=== PATIENT | female | born 1970 | race American Indian/Alaskan Native ===

== ENCOUNTER 2019-10-18 20:34 | Observation (INO) | payer MEDICARE ==
--- NOTE | 2019-10-18 21:52 | Event Note ---
ED Screening Note Date of service: 10/18/19 Time: 21:49 ED Screening Note: Patient is a 49 yo AA female with a h/o COPD, CHF, NIDDM, ESRD on hemodialysis presents to the ED with c/o acute onset syncope about 1 hour ago. Patient diagnosed earlier with [place] at [facility] and was on her way to the pharmacy when she had a syncope. Patient evaluated on scene by EMS and brought to the ED. In triage, patient is alert and oriented x 3, somnolent but arousable. This initial assessment/diagnostic orders/clinical plan/treatment(s) is/are subject to change based on patients health status, clinical progression and re- assessment by fellow clinical providers in the ED. Further treatment and workup at subsequent clinical providers discretion. Patient/guardian urged not to elope from the ED as their condition may be serious if not clinically assessed and managed. Initial orders include: CBC, EKG, CMP, BNP, Chest x-ray, Head CT scan, troponin, PT, PTT
[2019-10-18 22:15] LABS: INR 1.07 (0.87-1.13)
[2019-10-18 22:16] LABS: Hematocrit 32.2 % (30.3-42.9); Hemoglobin 10.3 gm/dl (10.1-14.3); Mean Corpuscular HGB Conc 32 % (30-34); Mean Corpuscular Volume 92 fl (79-97); Partial Thromboplastin Time 32.9 Sec. (24.2-36.6); Platelet Count 216 K/mm3 (140-440); Red Blood Count 3.52 M/mm3 (3.65-5.03); Red Cell Distribution Width 17.3 % (13.2-15.2)
--- NOTE | 2019-10-18 22:29 | XRay Report ---
CHEST 1 VIEW 10:14 PM INDICATION / CLINICAL INFORMATION: Syncope and dyspnea. COMPARISON: None available. FINDINGS: SUPPORT DEVICES: The patient's brassiere was left in place. There is a right jugular Vas-Cath with th e tip overlying the mid right atrium. HEART / MEDIASTINUM: The heart is mildly enlarged. Pulmonary vasculature is normal. LUNGS / PLEURA: There is minimal right basilar subsegmental parenchymal disease. No pneumothorax. ADDITIONAL FINDINGS: No significant additional findings. IMPRESSION: Minimal right basilar subsegmental atelectasis. Signer Name: Reji Balbuena MD Signed: 10/18/2019 10:25 PM Workstation Name: [id number]
[2019-10-18 22:30] LABS: Albumin 3.7 g/dL (3.9-5)
[2019-10-18 22:47] LABS: Anisocytosis 1+; Basophils % (Manual) 0 % (0.0-1.8); Eosinophils % (Manual) 0 % (0.0-4.3); Hypochromasia 1+; Schistocytes 1+; Target Cells 1+; Total Cells Counted 100
--- NOTE | 2019-10-18 22:56 | Cat Scan Report ---
CT head without contrast INDICATION : dyspnea, syncope. TECHNIQUE: Axial imaging performed from the skull apex through the skull base without the use of con trast. All CT scans at this location are performed using CT dose reduction for ALARA by means of aut omated exposure control. COMPARISON: None FINDINGS: Parenchyma: No acute intracranial hemorrhage or parenchymal abnormality. Small lacunar infarct in th e left basal ganglia. Ventricles: Ventricles are normal in size and appear symmetric. Soft tissues: Soft tissues including the orbits appear normal. Bones: No acute osseous abnormality. Sinuses: Sinuses and mastoid air cells are clear. IMPRESSION: No acute abnormality. Signer Name: Deshawn Hilario MD Signed: 10/18/2019 10:52 PM Workstation Name: [id number]
[2019-10-19] MEDS ORDERED: IPRATROPIUM/ALBUTEROL SULFATE 3 ML AMPUL.NEB IH ONE (01:12)
--- NOTE | 2019-10-19 01:53 | Emergency Department Report ---
ED General Adult HPI - General Chief complaint: Syncope Stated complaint: FLU Time Seen by Provider: 10/19/19 00:33 Source: patient, EMS Mode of arrival: Ambulatory Limitations: Physical Limitation, Other - History of Present Illness Initial comments: Patient presents to the emergency department with a chief complaint of a syncopal episode. Patient states she was diagnosed with influenza [facility] and was given prescriptions and discharged home. Patient states on the way home in the passenger seat of the vehicle she passed out. Patient denies any chest pain prior to or after the syncopal event. Patient has a history of end-stage renal disease with dialysis, hypertension, diabetes mellitus, COPD. -: Sudden Severity scale (0 -10): 0 Consistency: now resolved Improves with: none Worsens with: none Associated Symptoms: denies other symptoms Treatments Prior to Arrival: none - Related Data Home Medications Medication Instructions Recorded Confirmed Last Taken Albuterol INH(or & Nicu Only) 2 puff IH Q4H PRN 07/07/13 10/19/19 12/30/15 [ProAir HFA Inhaler] Insulin Aspart (Nf) [NovoLOG 100 30 unit SQ TIDAC 07/07/13 10/19/19 12/30/15 UNITS/ML VIAL] Loratadine (Nf) [Claritin (Nf)] 10 mg PO DAILY 07/07/13 10/19/19 12/30/15 Furosemide [Lasix TAB] 80 mg PO TID 11/14/14 10/19/19 12/30/15 Insulin Glargine,Hum.rec.anlog 3 unit SQ QHS 11/14/14 10/19/19 12/30/15 [Lantus] hydrALAZINE [Apresoline TAB] 50 mg PO TID 11/14/14 10/19/19 12/31/15 Albuterol Sulfate [Ventolin HFA] 2 puff IH PRN PRN 12/30/15 10/19/19 12/30/15 Cinacalcet [Sensipar] 30 mg PO QDAY 12/30/15 10/19/19 12/30/15 Cyclopentolate 1% [Cyclogyl] 1 drop OU QDAY 12/30/15 10/19/19 12/30/15 Gabapentin 300 mg PO BID 12/30/15 10/19/19 12/30/15 Montelukast Sodium 4 mg PO QDAY 12/30/15 10/19/19 12/30/15 Montelukast Sodium 4 mg PO QID 12/30/15 10/19/19 12/30/15 Trazodone HCl [traZODone] 50 mg PO HS 12/30/15 10/19/19 12/30/15 carvediloL [Carvedilol] 3.125 mg PO QDAY 12/30/15 10/19/19 12/31/15 Allergies Allergy/AdvReac Type Severity Reaction Status Date / Time acetaminophen [From Percocet] AdvReac Dizziness/short Verified 11/14/14 07:15 of breath oxycodone HCl [From Percocet] AdvReac Dizziness/short Verified 11/14/14 07:15 of breath ED Review of Systems ROS: Stated complaint: FLU Other details as noted in HPI Comment: All other systems reviewed and negative Constitutional: denies: chills, fever Eyes: denies: eye pain, eye discharge, vision change ENT: denies: ear pain, throat pain Respiratory: cough, wheezing. denies: shortness of breath Cardiovascular: denies: chest pain, palpitations Endocrine: no symptoms reported Gastrointestinal: denies: abdominal pain, nausea, diarrhea Genitourinary: denies: urgency, dysuria, discharge Musculoskeletal: denies: back pain, joint swelling, arthralgia Skin: denies: rash, lesions Neurological: denies: headache, weakness, paresthesias Psychiatric: denies: anxiety, depression Hematological/Lymphatic: denies: easy bleeding, easy bruising ED Past Medical Hx - Past Medical History Hx Hypertension: Yes (12 YRS) Hx Heart Attack/AMI: No Hx Congestive Heart Failure: Yes Hx Diabetes: Yes (16YRS) Hx Deep Vein Thrombosis: Yes Hx Renal Disease: Yes (noncompliant with dialysis) Hx Headaches / Migraines: Yes Hx Seizures: No Hx Psychiatric Treatment: Yes (depression) Hx Asthma: Yes (SINCE 4YRS OLD) Hx COPD: No Additional medical history: gout - Surgical History Hx Coronary Stent: No Additional Surgical History: D. & C.1985. fistula left arm. port in abd for peritoneal dialysis - Social History Smoking Status: Never Smoker Substance Use Type: None - Medications Home Medications: Home Medications Medication Instructions Recorded Confirmed Last Taken Type Albuterol INH(or & Nicu Only) 2 puff IH Q4H PRN 07/07/13 10/19/19 12/30/15 History [ProAir HFA Inhaler] Insulin Aspart (Nf) [NovoLOG 100 30 unit SQ TIDAC 07/07/13 10/19/19 12/30/15 History UNITS/ML VIAL] Loratadine (Nf) [Claritin (Nf)] 10 mg PO DAILY 07/07/13 10/19/19 12/30/15 History Furosemide [Lasix TAB] 80 mg PO TID 11/14/14 10/19/19 12/30/15 History Insulin Glargine,Hum.rec.anlog 3 unit SQ QHS 11/14/14 10/19/19 12/30/15 History [Lantus] hydrALAZINE [Apresoline TAB] 50 mg PO TID 11/14/14 10/19/19 12/31/15 History Albuterol Sulfate [Ventolin HFA] 2 puff IH PRN PRN 12/30/15 10/19/19 12/30/15 History Cinacalcet [Sensipar] 30 mg PO QDAY 12/30/15 10/19/19 12/30/15 History Cyclopentolate 1% [Cyclogyl] 1 drop OU QDAY 12/30/15 10/19/19 12/30/15 History Gabapentin 300 mg PO BID 12/30/15 10/19/19 12/30/15 History Montelukast Sodium 4 mg PO QDAY 12/30/15 10/19/19 12/30/15 History Montelukast Sodium 4 mg PO QID 12/30/15 10/19/19 12/30/15 History Trazodone HCl [traZODone] 50 mg PO HS 12/30/15 10/19/19 12/30/15 History carvediloL [Carvedilol] 3.125 mg PO QDAY 12/30/15 10/19/19 12/31/15 History ED Physical Exam - General Limitations: Physical Limitation, Other General appearance: alert, in no apparent distress - Head Head exam: Present: atraumatic, normocephalic - Eye Eye exam: Present: normal appearance - ENT ENT exam: Present: mucous membranes moist - Neck Neck exam: Present: normal inspection - Respiratory Respiratory exam: Present: wheezes. Absent: respiratory distress - Cardiovascular Cardiovascular Exam: Present: regular rate, normal rhythm. Absent: systolic murmur, diastolic murmur, rubs, gallop - GI/Abdominal GI/Abdominal exam: Present: soft, normal bowel sounds. Absent: distended, tenderness - Extremities Exam Extremities exam: Present: normal inspection - Back Exam Back exam: Present: normal inspection - Neurological Exam Neurological exam: Present: alert, oriented X3, CN II-XII intact. Absent: motor sensory deficit - Psychiatric Psychiatric exam: Present: normal affect, normal mood - Skin Skin exam: Present: warm, dry, intact, normal color. Absent: rash ED Course Vital Signs 10/18/19 10/19/19 20:50 00:56 Temperature 98.5 F 100.3 F H Pulse Rate 93 H 107 H Respiratory 20 15 Rate Blood Pressure 141/76 Blood Pressure 153/87 [Left] O2 Sat by Pulse 99 98 Oximetry ED Medical Decision Making - Lab Data Result diagrams: 10/18/19 21:50 10/18/19 21:50 Lab Results 10/18/19 10/18/19 10/18/19 Range/Units 21:50 21:50 21:50 WBC 8.2 (4.5-11.0) K/mm3 RBC 3.52 L (3.65-5.03) M/mm3 Hgb 10.3 (10.1-14.3) gm/dl Hct 32.2 (30.3-42.9) % MCV 92 (79-97) fl MCH 29 (28-32) pg MCHC 32 (30-34) % RDW 17.3 H (13.2-15.2) % Plt Count 216 (140-440) K/mm3 Lymph % (Auto) Print Finisher [place] % (Auto) Print Finisher Eos % (Auto) Print Finisher Baso % (Auto) Print Finisher Lymph # Print Finisher [place] # Print Finisher Eos # Print Finisher Baso # Print Finisher Add Manual Diff Complete Total Counted 100 Seg Neutrophils % Print Finisher Seg Neuts % (Manual) 72.0 H (40.0-70.0) % Band Neutrophils % 0 % Lymphocytes % (Manual) 6.0 L (13.4-35.0) % Reactive Lymphs % (Man) 0 % Monocytes % (Manual) 22.0 H (0.0-7.3) % Eosinophils % (Manual) 0 (0.0-4.3) % Basophils % (Manual) 0 (0.0-1.8) % Metamyelocytes % 0 % Myelocytes % 0 % Promyelocytes % 0 % Blast Cells % 0 % Nucleated RBC % Not Reportable Seg Neutrophils # Print Finisher Seg Neutrophils # Man 5.9 (1.8-7.7) K/mm3 Band Neutrophils # 0.0 K/mm3 Lymphocytes # (Manual) 0.5 L (1.2-5.4) K/mm3 Abs React Lymphs (Man) 0.0 K/mm3 Monocytes # (Manual) 1.8 H (0.0-0.8) K/mm3 Eosinophils # (Manual) 0.0 (0.0-0.4) K/mm3 Basophils # (Manual) 0.0 (0.0-0.1) K/mm3 Metamyelocytes # 0.0 K/mm3 Myelocytes # 0.0 K/mm3 Promyelocytes # 0.0 K/mm3 Blast Cells # 0.0 K/mm3 WBC Morphology Not Reportable Hypersegmented Neuts Not Reportable Hyposegmented Neuts Not Reportable Hypogranular Neuts Not Reportable Smudge Cells Not Reportable Toxic Granulation Not Reportable Toxic Vacuolation Not Reportable Dohle Bodies Not Reportable Pelger-Huet Anomaly Not Reportable [place] Rods Not Reportable Platelet Estimate Not Reportable Clumped Platelets Not Reportable Plt Clumps, EDTA Not Reportable Large Platelets Not Reportable Giant Platelets Not Reportable Platelet Satelliting Not Reportable Plt Morphology Comment Not Reportable RBC Morphology Not Reportable Dimorphic RBCs Not Reportable Polychromasia Not Reportable Hypochromasia 1+ Poikilocytosis Not Reportable Anisocytosis 1+ Microcytosis Not Reportable Macrocytosis Not Reportable Spherocytes Not Reportable Pappenheimer Bodies Not Reportable Sickle Cells Not Reportable Target Cells 1+ Tear Drop Cells Not Reportable Ovalocytes Not Reportable Helmet Cells Not Reportable [place] Bodies Not Reportable [place] Rings Not Reportable [place] Cells Not Reportable Bite Cells Not Reportable Crenated Cell Not Reportable Elliptocytes Not Reportable Acanthocytes (Spur) Not Reportable Rouleaux Not Reportable Hemoglobin C Crystals Not Reportable Schistocytes 1+ Malaria parasites Not Reportable Maninder Bodies Not Reportable Hem Pathologist Commnt No PT 14.0 (12.2-14.9) Sec. INR 1.07 (0.87-1.13) APTT 32.9 (24.2-36.6) Sec. Sodium 136 L (137-145) mmol/L Potassium 3.8 (3.6-5.0) mmol/L Chloride 92.3 L (98-107) mmol/L Carbon Dioxide 23 (22-30) mmol/L Anion Gap 25 mmol/L BUN 18 H (7-17) mg/dL Creatinine 6.2 H (0.7-1.2) mg/dL Estimated GFR 9 ml/min BUN/Creatinine Ratio 3 % Glucose 187 H (65-100) mg/dL POC Glucose (70-105) Calcium 9.0 (8.4-10.2) mg/dL Total Bilirubin 0.20 (0.1-1.2) mg/dL AST 30 (5-40) units/L ALT 15 (7-56) units/L Alkaline Phosphatase 119 (35-129) units/L Troponin T 0.097 H (0.00-0.029) ng/mL NT-Pro-B Natriuret Pep 7684 H (0-900) pg/mL Total Protein 8.5 H (6.3-8.2) g/dL Albumin 3.7 L (3.9-5) g/dL Albumin/Globulin Ratio 0.8 % /01/30 Range/Units 21:59 WBC (4.5-11.0) K/mm3 RBC (3.65-5.03) M/mm3 Hgb (10.1-14.3) gm/dl Hct (30.3-42.9) % MCV (79-97) fl MCH (28-32) pg MCHC (30-34) % RDW (13.2-15.2) % Plt Count (140-440) K/mm3 Lymph % (Auto) [place] % (Auto) Eos % (Auto) Baso % (Auto) Lymph # [place] # Eos # Baso # Add Manual Diff Total Counted Seg Neutrophils % Seg Neuts % (Manual) (40.0-70.0) % Band Neutrophils % % Lymphocytes % (Manual) (13.4-35.0) % Reactive Lymphs % (Man) % Monocytes % (Manual) (0.0-7.3) % Eosinophils % (Manual) (0.0-4.3) % Basophils % (Manual) (0.0-1.8) % Metamyelocytes % % Myelocytes % % Promyelocytes % % Blast Cells % % Nucleated RBC % Seg Neutrophils # Seg Neutrophils # Man (1.8-7.7) K/mm3 Band Neutrophils # K/mm3 Lymphocytes # (Manual) (1.2-5.4) K/mm3 Abs React Lymphs (Man) K/mm3 Monocytes # (Manual) (0.0-0.8) K/mm3 Eosinophils # (Manual) (0.0-0.4) K/mm3 Basophils # (Manual) (0.0-0.1) K/mm3 Metamyelocytes # K/mm3 Myelocytes # K/mm3 Promyelocytes # K/mm3 Blast Cells # K/mm3 WBC Morphology Hypersegmented Neuts Hyposegmented Neuts Hypogranular Neuts Smudge Cells Toxic Granulation Toxic Vacuolation Dohle Bodies Pelger-Huet Anomaly [place] Rods Platelet Estimate Clumped Platelets Plt Clumps, EDTA Large Platelets Giant Platelets Platelet Satelliting Plt Morphology Comment RBC Morphology Dimorphic RBCs Polychromasia Hypochromasia Poikilocytosis Anisocytosis Microcytosis Macrocytosis Spherocytes Pappenheimer Bodies Sickle Cells Target Cells Tear Drop Cells Ovalocytes Helmet Cells [place] Bodies [place] Rings Autumn Cells Bite Cells Crenated Cell Elliptocytes Acanthocytes (Spur) Rouleaux Hemoglobin C Crystals Schistocytes Malaria parasites Maninder Bodies Hem Pathologist Commnt PT (12.2-14.9) Sec. INR (0.87-1.13) APTT (24.2-36.6) Sec. Sodium (137-145) mmol/L Potassium (3.6-5.0) mmol/L Chloride (98-107) mmol/L Carbon Dioxide (22-30) mmol/L Anion Gap mmol/L BUN (7-17) mg/dL Creatinine (0.7-1.2) mg/dL Estimated GFR ml/min BUN/Creatinine Ratio % Glucose (65-100) mg/dL POC Glucose 179 H (70-105) Calcium (8.4-10.2) mg/dL Total Bilirubin (0.1-1.2) mg/dL AST (5-40) units/L ALT (7-56) units/L Alkaline Phosphatase (35-129) units/L Troponin T (0.00-0.029) ng/mL NT-Pro-B Natriuret Pep (0-900) pg/mL Total Protein (6.3-8.2) g/dL Albumin (3.9-5) g/dL Albumin/Globulin Ratio % - EKG Data -: EKG Interpreted by Me EKG shows normal: sinus rhythm Rate: normal - Radiology Data Radiology results: report reviewed - Medical Decision Making Patient had a DuoNeb treatment for wheezing with improvement Results were discussed with patient Patient will be admitted for further evaluation of her syncopal episode and for treatment of her COPD exacerbation Critical care attestation.: If time is entered above; I have spent that time in minutes in the direct care of this critically ill patient, excluding procedure time. ED Disposition Clinical Impression: Syncope, COPD exacerbation Disposition: [id number] OP ADMIT IP TO THIS HOSP Is pt being admited?: Yes Does the pt Need Aspirin: Yes Condition: Stable Instructions: Syncope (ED), Chronic Obstructive Pulmonary Disease (ED) Referrals: PRIMARY CARE, [Primary Care Provider] - 3-5 Days
[2019-10-19] MEDS ORDERED: methylPREDNISolone Sod Succinate 125 MG/2 ML INJ IV ONE (02:22)
[2019-10-19] MEDS ORDERED: ASPIRIN 81 MG TAB CHEW PO ONE (02:24)
--- NOTE | 2019-10-19 02:29 | History and Physical Report ---
History of Present Illness Date of examination: 10/19/19 Date of admission: 10/19/2019 Chief complaint: " I passed out" History of present illness: Patient is 49-year-old female with a past medical history of end-stage renal disease, COPD dependent on 3L home oxygen, insulin-dependent diabetes, hypertension, CHF and gout who presents to ER with complaints of a syncopal event. Patient states she was seen and discharged from [facility] this morning for headache and influenza. Patient's at bedside states he was driving on the way to the pharmacy to black pickler patient's prescription, patient was in the passenger seat when she became unresponsive. He states she started to wake up upon arrival of EMS to the scene. She denies chest pain, shortness of breath Past History Past Medical History: other (As noted in HPI) Past Surgical History: Other (extremity fistula, D&C, PD catheter) Social history: Family history: CAD, hypertension Medications and Allergies Allergies Allergy/AdvReac Type Severity Reaction Status Date / Time acetaminophen [From Percocet] AdvReac Dizziness/short Verified 11/14/14 07:15 of breath oxycodone HCl [From Percocet] AdvReac Dizziness/short Verified 11/14/14 07:15 of breath Home Medications Medication Instructions Recorded Confirmed Last Taken Type Albuterol INH(or & Nicu Only) 2 puff IH Q4H PRN 07/07/13 10/19/19 12/30/15 History [ProAir HFA Inhaler] Insulin Aspart (Nf) [NovoLOG 100 30 unit SQ TIDAC 07/07/13 10/19/19 12/30/15 History UNITS/ML VIAL] Loratadine (Nf) [Claritin (Nf)] 10 mg PO DAILY 07/07/13 10/19/19 12/30/15 History Furosemide [Lasix TAB] 80 mg PO TID 11/14/14 10/19/19 12/30/15 History Insulin Glargine,Hum.rec.anlog 3 unit SQ QHS 11/14/14 10/19/19 12/30/15 History [Lantus] hydrALAZINE [Apresoline TAB] 50 mg PO TID 11/14/14 10/19/19 12/31/15 History Albuterol Sulfate [Ventolin HFA] 2 puff IH PRN PRN 12/30/15 10/19/19 12/30/15 History Cinacalcet [Sensipar] 30 mg PO QDAY 12/30/15 10/19/19 12/30/15 History Cyclopentolate 1% [Cyclogyl] 1 drop OU QDAY 12/30/15 10/19/19 12/30/15 History Gabapentin 300 mg PO BID 12/30/15 10/19/19 12/30/15 History Montelukast Sodium 4 mg PO QDAY 12/30/15 10/19/19 12/30/15 History Montelukast Sodium 4 mg PO QID 12/30/15 10/19/19 12/30/15 History Trazodone HCl [traZODone] 50 mg PO HS 12/30/15 10/19/19 12/30/15 History carvediloL [Carvedilol] 3.125 mg PO QDAY 12/30/15 10/19/19 12/31/15 History Review of Systems All systems: negative Constitutional: fever, chills Cardiovascular: syncope, high blood pressure Respiratory: respiratory infections, home oxygen Integumentary: dryness Neurological: syncope Exam - Physical Exam Narrative exam: - Physical Exam Narrative exam: General appearance: Present: No distress noted - EENT Eyes: Present: PERRL ENT: hearing intact, clear oral mucosa - Neck Neck: Present: supple, normal ROM - Respiratory Respiratory effort: normal Respiratory: bilateral: Clear to auscultation - Cardiovascular Heart Sounds: Present: S1 & S2. Absent: rub, click - Extremities Extremities: pulses symmetrical, No edema Peripheral Pulses: within normal limits - Abdominal General gastrointestinal: Present: , non-distended, normal bowel sounds genitourinary: Present: normal - Integumentary Integumentary: Present: clear, warm, dry - Musculoskeletal Musculoskeletal: gait normal, strength equal bilaterally - Psychiatric Psychiatric: appropriate mood/affect, intact judgment & insight - Neurologic Neurologic: CNII-XII intact, moves all extremities - Constitutional Vitals: Temp Pulse Resp BP Pulse Ox 100.3 F H 107 H 15 153/87 98 10/19/19 00:56 10/19/19 00:56 10/19/19 00:56 10/19/19 00:56 10/19/19 00:56 Results - Labs CBC & Chem 7: 10/18/19 21:50 10/18/19 21:50 Labs: Laboratory Last Values WBC 8.2 K/mm3 (4.5-11.0) 10/18/19 21:50 RBC 3.52 M/mm3 (3.65-5.03) L 10/18/19 21:50 Hgb 10.3 gm/dl (10.1-14.3) 10/18/19 21:50 Hct 32.2 % (30.3-42.9) 10/18/19 21:50 MCV 92 fl (79-97) 10/18/19 21:50 MCH 29 pg (28-32) 10/18/19 21:50 MCHC 32 % (30-34) 10/18/19 21:50 RDW 17.3 % (13.2-15.2) H 10/18/19 21:50 Plt Count 216 K/mm3 (140-440) 10/18/19 21:50 Lymph % (Auto) [place] [place] 10/18/19 21:50 [place] % (Auto) [employer] [place] 10/18/19 21:50 Eos % (Auto) [employer] [place] 10/18/19 21:50 Baso % (Auto) [employer] [place] 10/18/19 21:50 Lymph # [employer] [place] 10/18/19 21:50 [place] # [employer] [place] 10/18/19 21:50 Eos # [employer] [place] 10/18/19 21:50 Baso # [employer] [place] 10/18/19 21:50 Add Manual Diff Complete 10/18/19 21:50 Total Counted 100 10/18/19 21:50 Seg Neutrophils % [employer] [place] 10/18/19 21:50 Seg Neuts % (Manual) 72.0 % (40.0-70.0) H 10/18/19 21:50 Band Neutrophils % 0 % 10/18/19 21:50 Lymphocytes % (Manual) 6.0 % (13.4-35.0) L 10/18/19 21:50 Reactive Lymphs % (Man) 0 % 10/18/19 21:50 Monocytes % (Manual) 22.0 % (0.0-7.3) H 10/18/19 21:50 Eosinophils % (Manual) 0 % (0.0-4.3) 10/18/19 21:50 Basophils % (Manual) 0 % (0.0-1.8) 10/18/19 21:50 Metamyelocytes % 0 % 10/18/19 21:50 Myelocytes % 0 % 10/18/19 21:50 Promyelocytes % 0 % 10/18/19 21:50 Blast Cells % 0 % 10/18/19 21:50 Nucleated RBC % Not Reportable 10/18/19 21:50 Seg Neutrophils # [employer] [place] 10/18/19 21:50 Seg Neutrophils # Man 5.9 K/mm3 (1.8-7.7) 10/18/19 21:50 Band Neutrophils # 0.0 K/mm3 10/18/19 21:50 Lymphocytes # (Manual) 0.5 K/mm3 (1.2-5.4) L 10/18/19 21:50 Abs React Lymphs (Man) 0.0 K/mm3 10/18/19 21:50 Monocytes # (Manual) 1.8 K/mm3 (0.0-0.8) H 10/18/19 21:50 Eosinophils # (Manual) 0.0 K/mm3 (0.0-0.4) 10/18/19 21:50 Basophils # (Manual) 0.0 K/mm3 (0.0-0.1) 10/18/19 21:50 Metamyelocytes # 0.0 K/mm3 10/18/19 21:50 Myelocytes # 0.0 K/mm3 10/18/19 21:50 Promyelocytes # 0.0 K/mm3 10/18/19 21:50 Blast Cells # 0.0 K/mm3 10/18/19 21:50 WBC Morphology Not Reportable 10/18/19 21:50 Hypersegmented Neuts Not Reportable 10/18/19 21:50 Hyposegmented Neuts Not Reportable 10/18/19 21:50 Hypogranular Neuts Not Reportable 10/18/19 21:50 Smudge Cells Not Reportable 10/18/19 21:50 Toxic Granulation Not Reportable 10/18/19 21:50 Toxic Vacuolation Not Reportable 10/18/19 21:50 Dohle Bodies Not Reportable 10/18/19 21:50 Pelger-Huet Anomaly Not Reportable 10/18/19 21:50 Kwesi Rods Not Reportable 10/18/19 21:50 Platelet Estimate Not Reportable 10/18/19 21:50 Clumped Platelets Not Reportable 10/18/19 21:50 Plt Clumps, EDTA Not Reportable 10/18/19 21:50 Large Platelets Not Reportable 10/18/19 21:50 Giant Platelets Not Reportable 10/18/19 21:50 Platelet Satelliting Not Reportable 10/18/19 21:50 Plt Morphology Comment Not Reportable 10/18/19 21:50 RBC Morphology Not Reportable 10/18/19 21:50 Dimorphic RBCs Not Reportable 10/18/19 21:50 Polychromasia Not Reportable 10/18/19 21:50 Hypochromasia 1+ 10/18/19 21:50 Poikilocytosis Not Reportable 10/18/19 21:50 Anisocytosis 1+ 10/18/19 21:50 Microcytosis Not Reportable 10/18/19 21:50 Macrocytosis Not Reportable 10/18/19 21:50 Spherocytes Not Reportable 10/18/19 21:50 Pappenheimer Bodies Not Reportable 10/18/19 21:50 Sickle Cells Not Reportable 10/18/19 21:50 Target Cells 1+ 10/18/19 21:50 Tear Drop Cells Not Reportable 10/18/19 21:50 Ovalocytes Not Reportable 10/18/19 21:50 Helmet Cells Not Reportable 10/18/19 21:50 [place] Bodies Not Reportable 10/18/19 21:50 [place] Rings Not Reportable 10/18/19 21:50 [place] Cells Not Reportable 10/18/19 21:50 Bite Cells Not Reportable 10/18/19 21:50 Crenated Cell Not Reportable 10/18/19 21:50 Elliptocytes Not Reportable 10/18/19 21:50 Acanthocytes (Spur) Not Reportable 10/18/19 21:50 Rouleaux Not Reportable 10/18/19 21:50 Hemoglobin C Crystals Not Reportable 10/18/19 21:50 Schistocytes 1+ 10/18/19 21:50 Malaria parasites Not Reportable 10/18/19 21:50 [place] Bodies Not Reportable 10/18/19 21:50 Hem Pathologist Commnt No 10/18/19 21:50 PT 14.0 Sec. (12.2-14.9) 10/18/19 21:50 INR 1.07 (0.87-1.13) 10/18/19 21:50 APTT 32.9 Sec. (24.2-36.6) 10/18/19 21:50 Sodium 136 mmol/L (137-145) L 10/18/19 21:50 Potassium 3.8 mmol/L (3.6-5.0) 10/18/19 21:50 Chloride 92.3 mmol/L (98-107) L 10/18/19 21:50 Carbon Dioxide 23 mmol/L (22-30) 10/18/19 21:50 Anion Gap 25 mmol/L 10/18/19 21:50 BUN 18 mg/dL (7-17) H 10/18/19 21:50 Creatinine 6.2 mg/dL (0.7-1.2) H 10/18/19 21:50 Estimated GFR 9 ml/min 10/18/19 21:50 BUN/Creatinine Ratio 3 % 10/18/19 21:50 Glucose 187 mg/dL (65-100) H 10/18/19 21:50 POC Glucose 179 (70-105) H 10/18/19 21:59 Calcium 9.0 mg/dL (8.4-10.2) 10/18/19 21:50 Total Bilirubin 0.20 mg/dL (0.1-1.2) 10/18/19 21:50 AST 30 units/L (5-40) 10/18/19 21:50 ALT 15 units/L (7-56) 10/18/19 21:50 Alkaline Phosphatase 119 units/L (35-129) 10/18/19 21:50 Troponin T 0.097 ng/mL (0.00-0.029) H 10/18/19 21:50 NT-Pro-B Natriuret Pep 7684 pg/mL (0-900) H 10/18/19 21:50 Total Protein 8.5 g/dL (6.3-8.2) H 10/18/19 21:50 Albumin 3.7 g/dL (3.9-5) L 10/18/19 21:50 Albumin/Globulin Ratio 0.8 % 10/18/19 21:50 - Imaging and Cardiology EKG: report reviewed (Sinus rhythm) Chest x-ray: report reviewed (IMPRESSION: Minimal right basilar subsegmental atelectasis.) CT Scan - head: report reviewed (No acute abnormality) Assessment and Plan Assessment and plan: Patient is 49-year-old female with a past medical history of end-stage renal disease, COPD dependent on 3L home oxygen, insulin-dependent diabetes, hypertension, CHF and gout who presents to ER with complaints of a syncopal event. Patient seen in conjunction with Dr. Heller, who agrees with plan of care. Syncopal Event -CT head unremarkable -monitoring coordinator -Supportive care -Echo/ carotid ordred Influenza -Continue Tamiflu -Supportive care -IV fluids as tolerated COPD exacerbation - Scheduled nebs, breathing treatment and as needed, empiric steroid - Supplemental oxygen to keep oxygen saturation above 92% - Consider to consult pulmonary if no improvement in next 24 hours ESRD -Avoid nephrotoxic agents -Renal dose all meds -MWF schedule -strict I/O, -monitor uop q shift, -supplemental oxygen, Congestive heart Failure -Monitor input and output. -iv diuretics, supportive care -Continue home meds once reconciled elevated troponin -Chronic -Most likely noncardiac -continue to trend Anemia in chronic kidney disease -mild anemia -Transfuse if needed DM II -POC BG monitoring -SSI coverage prn Hypertension -Home meds once reconciled -Monitor BP q shift DVT prophylaxis -SCDs bilateral extremities -Patient ambulatory Advance Directives: No VTE prophylaxis?: Chemical Plan of care discussed with patient/family: Yes
[2019-10-19] MEDS ORDERED: IBUPROFEN 800 MG TAB ONE (02:37)
[2019-10-19] MEDS ORDERED: ONDANSETRON 4 MG/2 ML INJ IV PRN (02:39)
[2019-10-19] MEDS ORDERED: ALBUTEROL 2.5 MG/3 ML NEBU IH PRN (02:39)
[2019-10-19] MEDS ORDERED: DEXTROSE 50% IN WATER (25GM) 50 ML SYRINGE IV PRN (02:39)
[2019-10-19] MEDS ORDERED: IBUPROFEN 800 MG TAB PO ONE (02:40)
[2019-10-19] MEDS ORDERED: SODIUM CHLORIDE 0.9% 1000 ML 1,000 ML IV SCH (02:45)
[2019-10-19] MEDS ORDERED: IBUPROFEN 600 MG TAB PO PRN (02:47)
[2019-10-19] MEDS ORDERED: FUROSEMIDE 40 MG/4 ML INJ IV SCH (06:00)
[2019-10-19] MEDS: IPRATROPIUM/ALBUTEROL SULFATE 3 ML AMPUL.NEB IH SCH ×2 (07:30→14:35)
[2019-10-19] MEDS ORDERED: methylPREDNISolone Sod Succinate 40 MG/1 ML INJ IV SCH (08:00)
[2019-10-19] MEDS: INSULIN LISPRO 100 UNIT/ML SUB-Q SCH ×2 (09:43→13:11)
[2019-10-19] MEDS ORDERED: OSELTAMIVIR PHOSPHATE 30 MG/5 ML ORALSYR PO SCH (10:00)
[2019-10-19] MEDS ORDERED: OSELTAMIVIR 75 MG CAP PO SCH (10:00)
[2019-10-19] MEDS: HEPARIN 5,000 UNIT/1 ML VIAL SUB-Q SCH ×2 (10:37→13:14)
--- NOTE | 2019-10-19 11:58 | Vascular Lab Report ---
BILATERAL CAROTID DOPPLER ULTRASOUND INDICATION : SYNCOPE TECHNIQUE: Grayscale and color Doppler imaging performed through the neck. COMPARISON: None FINDINGS: Right: There is mild partially calcified plaque in the carotid bulb and proximal ICA. Peak systolic velocity in the CCA is 96 cm/s with end-diastolic velocity of 14 cm/s. Peak systolic velocity in the proximal ICA is 78 cm/s with end-diastolic velocity of 22 cm/s. ICA to CCA ratio is less than 2. The re is antegrade flow in the ECA and the vertebral artery. Left: There is moderate calcific plaque in the carotid bulb and proximal ICA. Peak systolic velocity in the CCA is 92 cm/s with end-diastolic velocity of 14 cm/s. Peak systolic velocity in the proximal ICA is 168 cm/s with end-diastolic velocity of 48 cm/s. ICA to CCA ratio is less than 2. There is ant egrade flow in the ECA and the vertebral artery. IMPRESSION: No hemodynamically significant stenosis in the right carotid system by NASCET criteria. Elevated velocities in the proximal and mid left ICA indicate 50-79% stenosis by Doppler velocities. Signer Name: Sarthak Villegas Jr, MD Signed: 10/19/2019 11:53 AM Workstation Name: [id number]
--- NOTE | 2019-10-19 12:50 | Consultation ---
History of Present Illness Consult date: 10/19/19 Consult reason: syncope History of present illness: This is a 49-year old woman admitted with syncope. Of note, family member at that bedside reports the patient was seen at [facility] for generalized weakness and coughs and discharged from the emergency department. Family member states as they were traveling home, the patient was unresponsive in the passenger seat. EMS was called. When the patient came to herself, she denied chest pain, unusual shortness of breath or palpitations prior to her unresponsiveness. There is no report of her blood glucose level on EMS arrival. The patient was brought in and admitted for evaluation. Cardiac consultation has been requested. Patient has a history of end-stage renal disease on dialysis, hypertension, diabetes mellitus, and COPD. There is no history of coronary artery disease. Her latest cardiac workup was done at this hospital in 2013. She had a normal stress thallium test and a normal left ventricular systolic function, ejection fraction 55% by echocardiogram. 12 lead ECG is sinus rhythm with LVH. Past History Past Medical History: other (As noted in HPI) Past Surgical History: Other (extremity fistula, D&C, PD catheter) Social history: Family history: CAD, hypertension Medications and Allergies Allergies Allergy/AdvReac Type Severity Reaction Status Date / Time acetaminophen [From Percocet] AdvReac Dizziness/short Verified 11/14/14 07:15 of breath oxycodone HCl [From Percocet] AdvReac Dizziness/short Verified 11/14/14 07:15 of breath Home Medications Medication Instructions Recorded Confirmed Last Taken Type Albuterol INH(or & Nicu Only) 2 puff IH Q4H PRN 07/07/13 10/19/19 12/30/15 History [ProAir HFA Inhaler] Insulin Aspart (Nf) [NovoLOG 100 30 unit SQ TIDAC 07/07/13 10/19/19 12/30/15 History UNITS/ML VIAL] Loratadine (Nf) [Claritin (Nf)] 10 mg PO DAILY 07/07/13 10/19/19 12/30/15 History Furosemide [Lasix TAB] 80 mg PO TID 11/14/14 10/19/19 12/30/15 History Insulin Glargine,Hum.rec.anlog 3 unit SQ QHS 11/14/14 10/19/19 12/30/15 History [Lantus] hydrALAZINE [Apresoline TAB] 50 mg PO TID 11/14/14 10/19/19 12/31/15 History Albuterol Sulfate [Ventolin HFA] 2 puff IH PRN PRN 12/30/15 10/19/19 12/30/15 History Cinacalcet [Sensipar] 30 mg PO QDAY 12/30/15 10/19/19 12/30/15 History Cyclopentolate 1% [Cyclogyl] 1 drop OU QDAY 12/30/15 10/19/19 12/30/15 History Gabapentin 300 mg PO BID 12/30/15 10/19/19 12/30/15 History Montelukast Sodium 4 mg PO QDAY 12/30/15 10/19/19 12/30/15 History Montelukast Sodium 4 mg PO QID 12/30/15 10/19/19 12/30/15 History Trazodone HCl [traZODone] 50 mg PO HS 12/30/15 10/19/19 12/30/15 History carvediloL [Carvedilol] 3.125 mg PO QDAY 12/30/15 10/19/19 12/31/15 History Active Meds: Active Medications Albuterol (Proventil) 2.5 mg IH Q3HRT PRN PRN Reason: Shortness Of Breath Albuterol/Ipratropium (Duoneb *Not For Prn Use*) 1 ampul IH Q6HRT [facility] Last Admin: 10/19/19 07:30 Dose: Not Given Documented by: Dextrose (D50w (25gm) Syringe) 50 ml IV Q30MIN PRN; Protocol PRN Reason: Hypoglycemia Heparin Sodium (Porcine) (Heparin) 5,000 unit SUB-Q Q12HR [facility] Last Admin: 10/19/19 10:37 Dose: Not Given Documented by: Insulin Human Lispro (Humalog) 0 unit SUB-Q [facility]; Protocol Last Admin: 10/19/19 09:43 Dose: 3 unit Documented by: Methylprednisolone Sodium Succinate (Solu-Medrol) 40 mg IV Q6H [facility] Last Admin: 10/19/19 09:58 Dose: 40 mg Documented by: Ondansetron HCl (Zofran) 4 mg IV Q8H PRN PRN Reason: Nausea And Vomiting Oseltamivir Phosphate (Tamiflu) 30 mg PO DAILY GREGORIA Stop: 10/23/19 10:01 Last Admin: 10/19/19 10:38 Dose: Not Given Documented by: Physical Examination Vital Signs Temp Pulse Resp BP Pulse Ox 98.5 F 93 H 20 141/76 99 10/18/19 20:50 10/18/19 20:50 10/18/19 20:50 10/18/19 20:50 10/18/19 20:50 General appearance: no acute distress HEENT: Positive: PERRL Neck: Positive: trachea midline Cardiac: Positive: Reg Rate and Rhythm Lungs: Positive: Decreased Breath Sounds, Wheezes Extremities: Absent: edema Results 10/18/19 21:50 10/18/19 21:50 Cardiac Enzymes 10/18/19 Range/Units 21:50 AST 30 (5-40) units/L Coagulation 10/18/19 Range/Units 21:50 PT 14.0 (12.2-14.9) Sec. INR 1.07 (0.87-1.13) APTT 32.9 (24.2-36.6) Sec. CBC 10/18/19 Range/Units 21:50 WBC 8.2 (4.5-11.0) K/mm3 RBC 3.52 L (3.65-5.03) M/mm3 Hgb 10.3 (10.1-14.3) gm/dl Hct 32.2 (30.3-42.9) % Plt Count 216 (140-440) K/mm3 Lymph # Biomathematician [place] # Biomathematician Eos # Biomathematician Baso # Biomathematician Comprehensive Metabolic Panel 10/18/19 Range/Units 21:50 Sodium 136 L (137-145) mmol/L Potassium 3.8 (3.6-5.0) mmol/L Chloride 92.3 L (98-107) mmol/L Carbon Dioxide 23 (22-30) mmol/L BUN 18 H (7-17) mg/dL Creatinine 6.2 H (0.7-1.2) mg/dL Glucose 187 H (65-100) mg/dL Calcium 9.0 (8.4-10.2) mg/dL AST 30 (5-40) units/L ALT 15 (7-56) units/L Alkaline Phosphatase 119 (35-129) units/L Total Protein 8.5 H (6.3-8.2) g/dL Albumin 3.7 L (3.9-5) g/dL
[2019-10-19] MEDS ORDERED: ALBUTEROL 8.5 GM INHALATION IH PRN ×2 (13:38)
[2019-10-19] MEDS ORDERED: guaiFENesin DM 200/20 MG ORAL LIQD 10 ML PO PRN (13:40)
[2019-10-19] MEDS ORDERED: hydrALAZINE 25 MG TAB PO SCH (14:00)
--- NOTE | 2019-10-19 14:19 | Discharge Summary ---
Providers - Providers Date of Admission: 10/19/19 02:25 Attending physician: DANITA HERNANDEZ MD 10/19/19 08:25 Consult to Physician [CONS] Routine Comment: Consulting Provider: GABRIEL MCKEE Physician Instructions: Reason For Exam: esrd 10/19/19 10:59 Consult to Physician [CONS] Routine Comment: Consulting Provider: TEODORO ZHOU Physician Instructions: Reason For Exam: SYNCOPE Primary care physician: [employer] Hospitalization Reason for admission: Syncope Condition: Stable Hospital course: Patient is 49-year-old female with a past medical history of end-stage renal disease, COPD dependent on 3L home oxygen, insulin-dependent diabetes, hypertension, CHF and gout who presents to ER with complaints of a syncopal e vent. Patient states she was seen and discharged from [facility] this morning for headache and influenza. Patient's at bedside states a friend was driving while he sat at the back and the patient sat in front on the way to the pharmacy to hand picker patient's prescription, patient was in the passenger seat when she became unresponsive they believe that the patient was out for about 20 minutes with an additional 10 to 15 minutes before EMS arrived from the time they noted the patient was unresponsive. He states she started to wake up upon arrival of EMS to the scene. She denies chest pain, shortness of breath. Reported at the time that the EMS continue to speak to the patient and she was becoming more aware of her location. The patient reports that she had not eaten in 3 days and likely her blood sugar may have been low unfortunately there was no report of blood glucose level received from our facility. Cardiology was consulted to see her and they recommended a 30-day event monitor to evaluate any arrhythmia. Orthostatic vitals was requested but unfortunately not obtained up until now and despite multiple requests They also documented Patient has a history of end-stage renal disease on dialysis, hypertension, diabetes mellitus, and COPD. There is no history of coronary artery disease. Her latest cardiac workup was done at this hospital in 2013. She had a normal stress thallium test and a normal left ventricular systolic function, ejection fraction 55% by echocardiogram. 12 lead ECG is sinus rhythm with LVH. Syncope probably secondary to underlying arrhythmia Diabetes mellitus End-stage renal COPD LVH Type II OH Chronic hypoxia on home O2 Chronic diastolic congestive heart failure Disposition: TO HOME OR SELFCARE Time spent for discharge: 35 minutes Core Measure Documentation - Palliative Care Palliative Care/ Comfort Measures: Not Applicable - Core Measures Any of the following diagnoses?: none Exam - Physical Exam Narrative exam: VITAL SIGNS: Reviewed. GENERAL: The patient appears normally developed, morbidly obese vital signs as documented. HEAD: No signs of head trauma. EYES: Pupils are equal. Extraocular motions intact. EARS: Hearing grossly intact. MOUTH: Oropharynx is normal. NECK: No adenopathy, no JVD. CHEST: Chest with clear breath sounds bilaterally. No wheezes, rales, or rhonchi. CARDIAC: Regular rate and rhythm. S1 and S2, without murmurs, gallops, or rubs. VASCULAR: No Edema. Peripheral pulses normal and equal in all extremities. ABDOMEN: Soft, non tender and non distended. No rebound or guarding, and no masses palpated. Bowel Sounds normal. MUSCULOSKELETAL: Good range of motion of all major joints. Extremities without clubbing, cyanosis or edema. NEUROLOGIC EXAM: Alert and oriented x 3 No focal sensory or strength deficits. Speech normal. Follows commands. PSYCHIATRIC: Mood normal. SKIN: detial exam as documented in skin assessment - Constitutional Vitals: Temp Pulse Resp BP Pulse Ox 97.0 F L 76 18 159/94 99 10/19/19 11:54 10/19/19 11:54 10/19/19 11:54 10/19/19 11:54 10/19/19 11:54 Plan Activity: advance as tolerated, fall precautions Diet: low fat, diabetic, renal Special Instructions: record daily weights, record daily BP diary Additional Instructions: Follow-up with cardiology for event monitoring. Follow up with: VIRGINIE RITTER MD [Primary Care Provider] - 3-5 Days TEODORO ZHOU MD [Staff Physician] - 10/20/19 (To hand picker 30 DAY EVENT MONITOR) Prescriptions: guaiFENesin DM [Guaifenesin Dm Syrup] 10 ml PO Q4H PRN #100 ml PRN Reason: Cough
[2019-10-19 14:39] LABS: Hepatitis B Surface Antigen Non-Reactive (Negative); Hepatitis C Virus Antibody Non-Reactive (NonReactive)
[2019-10-19 15:21] VITALS: BP 169/66
[2019-10-19] MEDS ORDERED: INSULIN ASPART 30 UNIT SQ SCH (16:30)
[2019-10-19] MEDS ORDERED: INSULIN LISPRO 100 UNIT/ML SUB-Q SCH (16:30)
[2019-10-19] MEDS ORDERED: GABAPENTIN 300 MG CAP PO SCH (22:00)
[2019-10-19] MEDS ORDERED: INSULIN GLARGINE 100 UNITS/ML SUB-Q SCH (22:00)
[2019-10-19] MEDS ORDERED: GABAPENTIN 100 MG CAP PO SCH (22:00)
[2019-10-20] MEDS ORDERED: carvediloL 3.125 MG TAB PO SCH (10:00)
[2019-10-20] MEDS ORDERED: CYCLOPENTOLATE 1% OU SCH (10:00)
[2019-10-20] MEDS ORDERED: CETIRIZINE 10 MG TAB PO SCH (10:00)
[2019-10-20] MEDS ORDERED: CINACALCET 30 MG TAB PO SCH (10:00)
[2019-10-20] MEDS ORDERED: NON-FORMULARY EACH (Loratadine (Nf) 10 MG) PO SCH (10:00)
== END 2019-10-19 16:05 | disposition home or self-care (01) ==
LOC: ED 20:34 → 3A 10-19 02:25
PROVIDERS: ADMIT Internal Medicine Geriatric Medicine; ATTEND Internal Medicine
DX: I13.2 Hypertensive heart and chronic kidney disease with heart failure and with stage 5 chronic kidney disease, or end stage renal disease (principal); E11.22 Type 2 diabetes mellitus with diabetic chronic kidney disease; I50.32 Chronic diastolic (congestive) heart failure; N18.6 End stage renal disease; D63.1 Anemia in chronic kidney disease; J11.1 Influenza due to unidentified influenza virus with other respiratory manifestations; R55 Syncope and collapse; J44.1 Chronic obstructive pulmonary disease with (acute) exacerbation; R79.89 Other specified abnormal findings of blood chemistry; M10.9 Gout, unspecified; G43.909 Migraine, unspecified, not intractable, without status migrainosus; F32.9 Major depressive disorder, single episode, unspecified; Z99.81 Dependence on supplemental oxygen; Z99.2 Dependence on renal dialysis; Z79.4 Long term (current) use of insulin; Z79.899 Other long term (current) drug therapy; Z88.5 Allergy status to narcotic agent; Z88.8 Allergy status to other drugs, medicaments and biological substances
CPT/HCPCS: 36415; 70450; 71045; 80053; 80074; 82962; 83036; 83880; 84484; 85007; 85025; 85610; 85730; 87400; 93005; 93010; 93306; 93880; 94640; 94644; 94760; 96372; 96374; 96376; 99284; G0378; J1644; J2920; J2930; J1815

== ENCOUNTER 2021-06-19 04:23 | Inpatient (IN) | payer MEDICARE ==
[2021-06-19] MEDS ORDERED: SODIUM CHLORIDE 0.9% 250ML 250 ML IV ONE (06:13)
[2021-06-19] MEDS ORDERED: ONDANSETRON 4 MG/2 ML INJ IV ONE (06:22)
--- NOTE | 2021-06-19 06:26 | Emergency Department Report ---
HPI - General Chief Complaint: Dizziness Time Seen by Provider: 06/19/21 06:10 - HPI HPI: 51-year-old female with history of CHF, COPD on 3 L NC, DM2, and ESRD on HD M/W/ presents complaining of dizziness upon standing since 10 AM yesterday. The patient states that after finishing her dialysis session yesterday when she was going home at about 10 AM she noticed that when she tries to stand up she feels profoundly dizzy with room spinning dizziness primarily towards her left side. She also feels dizzy and says that shefeels weak and needs to sit down when this occurs. She has never had these symptoms before. While lying down the symptoms are not present. She states that her blood pressure is usually very elevated, in the 200s systolic. She has never had the symptoms before. She denies dizziness with head turning. She denies any associated headache, vision change, eye pain, double vision, neck pain, focal weakness, sensory changes, chest pain, shortness of breath, cough, fever, abdominal pain, vomiting, or any other complaints. She has not tried taking anything for symptoms. The patient also mentions that last week she was diagnosed with infection surrounding her left eye for which she was treated with antibiotics/eyedrops and which has now resolved. She is fully vaccinated against COVID-19. ED Past Medical Hx - Past Medical History Previous Medical History?: Yes Hx Hypertension: Yes (14 YRS) Hx Heart Attack/AMI: No Hx Congestive Heart Failure: Yes Hx Diabetes: Yes Hx Deep Vein Thrombosis: Yes Hx Renal Disease: Yes (noncompliant with dialysis MWF) Hx Headaches / Migraines: Yes Hx Seizures: No Hx Psychiatric Treatment: Yes (depression) Hx Asthma: Yes (SINCE 4YRS OLD) Hx COPD: No Additional medical history: gout - Surgical History Past Surgical History?: Yes Hx Coronary Stent: No Additional Surgical History: D. & C.1985. fistula left arm. port in abd for peritoneal dialysis - Social History Smoking Status: Never Smoker - Medications Home Medications: Home Medications Medication Instructions Recorded Confirmed Last Taken Type Albuterol Mdi (or & Nicu Only) 2 puff IH Q4H PRN 07/07/13 10/19/19 12/30/15 History [ProAir HFA Inhaler] Insulin Aspart (Nf) [NovoLOG 100 30 unit SQ TIDAC 07/07/13 10/19/19 12/30/15 History UNITS/ML VIAL] Loratadine (Nf) [Claritin (Nf)] 10 mg PO DAILY 07/07/13 06/19/21 12/30/15 History Furosemide [Lasix TAB] 80 mg PO TID 11/14/14 10/19/19 12/30/15 History Insulin Glargine,Hum.rec.anlog 3 unit SQ QHS 11/14/14 10/19/19 12/30/15 History [Lantus VIAL] hydrALAZINE [Apresoline TAB] 50 mg PO TID 11/14/14 06/19/21 12/31/15 History Albuterol Sulfate [Ventolin HFA] 2 puff IH PRN PRN 12/30/15 10/19/19 12/30/15 H istory Cinacalcet [Sensipar] 30 mg PO QDAY 12/30/15 10/19/19 12/30/15 History Cyclopentolate 1% [Cyclogyl] 1 drop OU QDAY 12/30/15 10/19/19 12/30/15 History Gabapentin 100 mg PO TID 12/30/15 06/19/21 12/30/15 History Montelukast Sodium 4 mg PO QDAY 12/30/15 10/19/19 12/30/15 History Montelukast Sodium 4 mg PO QID 12/30/15 10/19/19 12/30/15 History Trazodone HCl [traZODone] 50 mg PO HS 12/30/15 10/19/19 12/30/15 History carvediloL [Carvedilol] 3.125 mg PO QDAY 12/30/15 10/19/19 12/31/15 History guaiFENesin DM [Guaifenesin Dm 10 ml PO Q4H PRN #100 ml 10/19/19 Unknown Rx Syrup] AtorvaSTATin [Lipitor] 10 mg PO QHS 06/19/21 06/19/21 Unknown History Budesonide/Formoterol Fumarate 2 puff PO BID 06/19/21 06/19/21 Unknown History [Symbicort 80-4.5 Mcg Inhaler] Nitroglycerin [Nitrostat] 0.4 mg SL Q5M PRN 06/19/21 06/19/21 Unknown History ED Review of Systems ROS: Stated complaint: NAUSEA, LIGHT HEADED Other details as noted in HPI Constitutional: denies: chills, fever Eyes: denies: eye pain, eye discharge, vision change ENT: denies: ear pain, throat pain, congestion Respiratory: denies: cough, shortness of breath Cardiovascular: denies: chest pain, palpitations, syncope Endocrine: denies: excessive sweating, flushing Gastrointestinal: nausea. denies: abdominal pain, vomiting Genitourinary: denies: discharge Musculoskeletal: denies: back pain, joint swelling Neurological: weakness, abnormal gait, vertigo. denies: headache, numbness, paresthesias, confusion Psychiatric: denies: anxiety, depression Hematological/Lymphatic: denies: easy bleeding Physical Exam - Physical Exam Vital Signs: Vital Signs 06/19/21 06/19/21 05:14 05:16 Temperature 98.8 F Pulse Rate 69 Respiratory 20 20 Rate Blood Pressure 194/84 [Left] O2 Sat by Pulse 100 100 Oximetry Physical Exam: GENERAL: Well developed and well nourished. No acute distress HEAD: Normocephalic. No obvious signs of trauma. ENT: Dry mucous membranes. EYES: Extraocular movements are intact. Pupils are equal round and reactive to light bilaterally. No pain with extraocular movements. No periorbital swelling or erythema appreciated. NECK: Supple. Full ROM is intact. Trachea is midline. LUNGS: Nonlabored breathing. Equal chest rise bilaterally. Coarse breath sounds with bibasilar rales. CARDIOVASCULAR: Regular rate and rhythm. No murmurs or rubs. VASCULAR: Cap refill < 2 seconds. Right upper extremity fistula with brui t/thrill. 2+ pitting edema of the bilateral lower extremities. ABDOMEN: Abdomen is soft and nondistended. There is no significant tenderness, guarding or rebound. SKIN: Skin is warm and dry NEURO: Patient is awake, alert, and oriented. 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 Normal motor and sensory exam throughout. Normal speech. Normal F and F. Normal [id number]. Short shuffling gait with marked balance disequilibrium. NISS of 0 MUSCULOSKELETAL: No obvious deformities. No significant tenderness. Normal ROM throughout. BACK/SPINE: No midline tenderness or step-offs of the C/T/L spine. No costoverte bral angle tenderness. ED Course Vital Signs 06/19/21 06/19/21 05:14 05:16 Temperature 98.8 F Pulse Rate 69 Respiratory 20 20 Rate Blood Pressure 194/84 [Left] O2 Sat by Pulse 100 100 Oximetry ED Medical Decision Making - Lab Data Result diagrams: 06/20/21 05:04 06/20/21 05:04 Labs 06/19/21 06/19/21 06/19/21 06:39 06:39 06:39 WBC 5.4 RBC 3.48 L Hgb 10.5 Hct 32.5 MCV 94 MCH 30 MCHC 32 RDW 17.7 H Plt Count 160 Lymph % (Auto) 22.2 [place] % (Auto) 14.6 H Eos % (Auto) 1.3 Baso % (Auto) 0.7 Lymph # (Auto) 1.2 [place] # (Auto) 0.8 Eos # (Auto) 0.1 Baso # (Auto) 0.0 Seg Neutrophils % 61.2 Seg Neutrophils # 3.3 PT 15.5 H INR 1.18 H APTT 34.5 Thrombin Time 16.7 Sodium 141 Potassium 4.2 Chloride 97.0 L Carbon Dioxide 28 Anion Gap 20 BUN 23 H Creatinine 6.2 H Estimated GFR 9 BUN/Creatinine Ratio 4 Glucose 77 Calcium 9.7 Magnesium 2.20 Total Bilirubin 0.60 Direct Bilirubin 0.3 H Indirect Bilirubin 0.3 AST 29 ALT 23 Alkaline Phosphatase 134 H Total Creatine Kinase CK-MB (CK-2) CK-MB (CK-2) Rel Index Troponin T NT-Pro-B Natriuret Pep Total Protein 7.6 Albumin 4.1 Albumin/Globulin Ratio 1.2 Triglycerides Cholesterol LDL Cholesterol Direct HDL Cholesterol Cholesterol/HDL Ratio Plasma/Serum Alcohol 06/19/21 06/19/21 06/19/21 06:39 06:39 06:39 WBC RBC Hgb Hct MCV MCH MCHC RDW Plt Count Lymph % (Auto) [place] % (Auto) Eos % (Auto) Baso % (Auto) Lymph # (Auto) [place] # (Auto) Eos # (Auto) Baso # (Auto) Seg Neutrophils % Seg Neutrophils # PT INR APTT Thrombin Time Sodium Potassium Chloride Carbon Dioxide Anion Gap BUN Creatinine Estimated GFR BUN/Creatinine Ratio Glucose Calcium Magnesium Total Bilirubin Direct Bilirubin Indirect Bilirubin AST ALT Alkaline Phosphatase Total Creatine Kinase 77 CK-MB (CK-2) 1.5 CK-MB (CK-2) Rel Index 1.8 Troponin T 0.075 H NT-Pro-B Natriuret Pep 28481 H Total Protein Albumin Albumin/Globulin Ratio Triglycerides 91 Cholesterol 88 LDL Cholesterol Direct 34 L HDL Cholesterol 39 L Cholesterol/HDL Ratio 2.25 Plasma/Serum Alcohol < 0.01 06/19/21 09:34 WBC RBC Hgb Hct MCV MCH MCHC RDW Plt Count Lymph % (Auto) [place] % (Auto) Eos % (Auto) Baso % (Auto) Lymph # (Auto) [place] # (Auto) Eos # (Auto) Baso # (Auto) Seg Neutrophils % Seg Neutrophils # PT INR APTT Thrombin Time Sodium Potassium Chloride Carbon Dioxide Anion Gap BUN Creatinine Estimated GFR BUN/Creatinine Ratio Glucose Calcium Magnesium Total Bilirubin Direct Bilirubin Indirect Bilirubin AST ALT Alkaline Phosphatase Total Creatine Kinase CK-MB (CK-2) CK-MB (CK-2) Rel Index Troponin T 0.068 H NT-Pro-B Natriuret Pep Total Protein Albumin Albumin/Globulin Ratio Triglycerides Cholesterol LDL Cholesterol Direct HDL Cholesterol Cholesterol/HDL Ratio Plasma/Serum Alcohol - EKG Data -: EKG Interpreted by Me - EKG Data 06/20/21 09:41 Normal sinus rhythm. Normal axis. Normal intervals. Occasional PVCs. No significant ST segment or T wave abnormalities. - Medical Decision Making 51-year-old female with multiple medical problems including COPD on 3 L via NC and ESRD on HD presents complaining of room spinning dizziness upon standing as well as gait disturbance. Last known well time was 10 AM yesterday after the patient received dialysis. On initial assessment, the patient is afebrile and with normal vital signs with the exception of elevated blood pressure in the 190s systolic. The patient states that this is her baseline blood pressure. She has no dizziness upon head turning. Physical exam reveals dry mucous membranes. She has normal motor function/sensation throughout with normal FNF and heel/lai but with ambulation the patient is noted to have a small short shuffling gait with profound balance disequilibrium. Given the gait disturbance coupled with the nature of the patient's complaint, stroke alert was initiated with full set of labs and diagnostic studies ordered including both Noncon CT of the head to assess for evidence of intracranial bleeding versus signs of ischemia versus other intracranial pathologies as well as CTA of the head/neck to assess for large vessel occlusion given that she is outside the window for TPA. Given that the patient has dry mucous membranes and the symptoms started after her dialysis session yesterday we will also give small bolus of 250 cc of IV fluids. We will treat her blood pressure as necessary. We will also give meclizine. At 6:40 AM I spoke with Dr. Masterson of teleneurology who has examined the patient and reviewed the diagnostic imaging. He states that he also obtained an NIH stroke scale score of 0 but that given the patient's symptoms and gait disturbance he suspects stroke versus hypertensive emergency. He recommends CTA of the head and neck to assess for evidence of large vessel occlusion as ordered. He also recommends aspirin 325 and atorvastatin 80 mg as well as strict blood pressure control with target systolic blood pressure less than 160. At 7:05 AM, report reveals no acute findings on the Noncon CT of the head. At this time the patient was reassessed and is playing on her phone. She states she only has the symptoms when she stands up. The nurse performed orthostatic vital signs which were negative, but the patient did become symptomatic upon standing up. Her blood pressure remains elevated in the 200s systolic. Review of the patient's prior medical records reveals that her blood pressures were not this elevated in the past. Given that the patient has ESRD and CHF and the need for strict blood pressure control and negative orthostatics I have canceled the IV fluid bolus. We will initiate Cardene drip for strict blood pressure control and plan to admit the patient to medicine for MRI and further diagnostics pending results of the CTA of the head/neck. At 11:22 AM I spoke with Dr. Triana of nephrology who states that he will place dialysis orders as needed. Due to difficulty obtaining IV access, the patient's blood pressure remained elevated significantly for multiple hours despite persistent attempts to obtain IV access. Labs reveal no significant leukocytosis or anemia. CMP is consistent with end- stage renal disease with significantly elevated creatinine. There are no significant electrolyte abnormalities. Troponin is mildly elevated at 0.075 which is at her baseline based on prior records. Checks x-ray reveals no acute abnormalities. Although IV access was eventually obtained, unable to place large-bore IV in the AC and therefore I was told by radiology that CTA of the head and neck could not be performed. After initiation of the Cardene drip, the patient's blood pressure was noted to be in the 150s over 120s. The patient will be admitted to medicine for further work-up and management. All this was discussed with the patient who expressed understanding and agreement with the plan of care. I spoke with Dr. Farr, the on-call hospitalist regarding the case and he understands that CTA of the head/neck could not be performed today although the patient is outside the window for intervention even if large vessel occlusion was present. He accepts the patient for admission and will assume care. Critical Care Time: Yes Critical care time in (mins) excluding proc time.: 45 Critical care attestation.: If time is entered above; I have spent that time in minutes in the direct care of this critically ill patient, excluding procedure time. Critical care time was spent in the evaluation/assessment, work-up, and management of acute neurologic deficit and end-stage renal disease as well as hypertensive emergency requiring stroke alert initiation, consultation with specialists, initiation of Cardene drip, and multiple reevaluations and reassessments ED Disposition Clinical Impression: Hypertensive emergency, Gait disturbance, Stroke, ESRD (end stage renal disease) on dialysis, DM2 (diabetes mellitus, type 2), COPD (chronic obstructive pulmonary disease) Disposition: 09 ADMITTED INPATIENT Is pt being admited?: Yes Condition: Critical
--- NOTE | 2021-06-19 06:45 | Consultation ---
History of Present Illness History of present illness: [facility] Consult Note # Demographics Consult Type: Acute Stroke Level 2 (4.5-24 hrs) Patient Location: Emergency Room First Name: Vilma Last Name: Myla Date of : 1970 Age: 51 Gender: Female Facility: [facility] Time of Initial Page (): 06/19/2021, 06:27 Time of Return Call ( Time): 06/19/2021, 06:28 # HPI Chief Complaint: dizziness History: 51F with ESRD on HD presents with dizziness. Present when she stands up. Not really able to walk. Hypertensive to SBP 190s. Symptoms started at 10 am yesterday. # Scores Time of exam and NIHSS (): 06/19/2021, 06:36 Level of Consciousness 1a: [0] = Alert; keenly responsive LOC Questions 1b: [0] = Answers both questions correctly LOC Commands 1c: [0] = Performs both tasks correctly Best Gaze 2: [0] = Normal Visual 3: [0] = No visual loss Facial Palsy 4: [0] = Normal symmetrical movements Motor Arm Left 5a: [0] = No drift Motor Arm Right 5b: [0] = No drift Motor Leg Left 6a: [0] = No drift Motor Leg Right 6b: [0] = No drift Limb Ataxia 7: [0] = Absent Sensory 8: [0] = Normal Best Language 9: [0] = No aphasia Dysarthria 10: [0] = Normal Extinction and Inattention 11: [0] = No abnormality NIHSS Total: 0 # Data Time Head CT personally read by me (): 06/19/2021, 06:[address]: no bleed preliminarily reviewed by me, please refer to radiology read for official reading # Assessment Impression: stroke vs hypertensive urgency # Plan Thrombolytic/Intervention: NOT IV Thrombolysis or IA Intervention candidate Thrombolytic Exclusion: > 4.5 hours Intraarterial Exclusion: clinically consistent with small vessel disease Target Blood Pressure: SBP < 160 DBP < 105 Labs: hemoglobin A1c lipid panel Imaging: (urgency: STAT): f/u CTA head/neck Imaging: (urgency: routine): MRI Brain without contrast Diagnostic Test: echo with bubble study Therapy/Evaluation: PT/OT evaluation Medication: ASA 325 then 81 daily Atorvastatin 80, then tailor to LDL < 70 goal DVT Prophylaxis: SCD chemical DVT prophylaxis Other: telemetry monitoring I have discussed my recommendations with the referring provider Additional Recommendations: If stroke present on MRI: Start Plavix 300 x1 then 75 daily x3 weeks Disposition: admit # Logistics Telemedicine: Interactive 2 way audio and visual telecommunication technology was utilized during this visit Electronically signed at 06/19/2021 06:44 (Eastern Time) by Zelalem Selby MD Medications and Allergies Allergies Allergy/AdvReac Type Severity Reaction Status Date / Time acetaminophen [From Percocet] AdvReac Dizziness/short Verified 11/14/14 07:15 of breath oxycodone HCl [From Percocet] AdvReac Dizziness/short Verified 11/14/14 07:15 of breath Home Medications Medication Instructions Recorded Confirmed Last Taken Type Albuterol Mdi (or & Nicu Only) 2 puff IH Q4H PRN 07/07/13 10/19/19 12/30/15 History [ProAir HFA Inhaler] Insulin Aspart (Nf) [NovoLOG 100 30 unit SQ TIDAC 07/07/13 10/19/19 12/30/15 History UNITS/ML VIAL] Loratadine (Nf) [Claritin (Nf)] 10 mg PO DAILY 07/07/13 10/19/19 12/30/15 History Furosemide [Lasix TAB] 80 mg PO TID 11/14/14 10/19/19 12/30/15 History Insulin Glargine,Hum.rec.anlog 3 unit SQ QHS 11/14/14 10/19/19 12/30/15 History [Lantus VIAL] hydrALAZINE [Apresoline TAB] 50 mg PO TID 11/14/14 10/19/19 12/31/15 History Albuterol Sulfate [Ventolin HFA] 2 puff IH PRN PRN 12/30/15 10/19/19 12/30/15 History Cinacalcet [Sensipar] 30 mg PO QDAY 12/30/15 10/19/19 12/30/15 History Cyclopentolate 1% [Cyclogyl] 1 drop OU QDAY 12/30/15 10/19/19 12/30/15 History Gabapentin 300 mg PO BID 04/18/16 02/06/20 04/18/16 History Montelukast Sodium 4 mg PO QDAY 12/30/15 10/19/19 12/30/15 History Montelukast Sodium 4 mg PO QID 12/30/15 10/19/19 12/30/15 History Trazodone HCl [traZODone] 50 mg PO HS 12/30/15 10/19/19 12/30/15 History carvediloL [Carvedilol] 3.125 mg PO QDAY 12/30/15 10/19/19 12/31/15 History guaiFENesin DM [Guaifenesin Dm 10 ml PO Q4H PRN #100 ml 10/19/19 Unknown Rx Syrup] Physical Examination - Vital Signs Vital Signs: Vital Signs Temp Pulse Resp BP Pulse Ox 98.8 F 69 20 194/84 100 06/19/21 05:14 06/19/21 05:14 06/19/21 05:14 06/19/21 05:14 06/19/21 05:14
[2021-06-19] MEDS ORDERED: MECLIZINE 25 MG TAB PO ONE (06:46)
[2021-06-19] MEDS ORDERED: hydrALAZINE 20 MG/1 ML INJ IV ONE (06:46)
--- NOTE | 2021-06-19 06:51 | Cat Scan Report ---
CT head without contrast INDICATION : Altered mental status. TECHNIQUE: Axial imaging performed from the skull apex through the skull base without the use of con trast. All CT examinations performed at this facility utilize dose modulation, iterative reconstruct ion or weight-based dosing, when appropriate, to reduce radiation dose to as low as reasonably achiev able. COMPARISON: 10/18/2019 FINDINGS: No acute intracranial hemorrhage or parenchymal abnormality. Ventricles are normal in si ze and appear symmetric. Soft tissues including the orbits appear normal. No acute osseous abnorm ality. Sinuses and mastoid air cells are clear. IMPRESSION: No acute abnormality. Signer Name: Rah Vaughn MD Signed: 06/19/2021 6:46 AM Workstation Name: [id number]
[2021-06-19] MEDS ORDERED: ASPIRIN 81 MG TAB CHEW PO ONE (07:06)
[2021-06-19] MEDS ORDERED: niCARdipine DRIP 40 MG/200 ML BAG IV ONE ×2 (07:29→11:00)
[2021-06-19 07:35] LABS: Basophils % (Auto) 0.7 % (0.0-1.8); Eosinophils # (Auto) 0.1 K/mm3 (0.0-0.4); Eosinophils % (Auto) 1.3 % (0.0-4.3); Hematocrit 32.5 % (30.3-42.9); Hemoglobin 10.5 gm/dl (10.1-14.3); Lymphocytes # (Auto) 1.2 K/mm3 (1.2-5.4); Lymphocytes % (Auto) 22.2 % (13.4-35.0); Mean Corpuscular HGB Conc 32 % (30-34); Mean Corpuscular Volume 94 fl (79-97); Monocytes # (Auto) 0.8 K/mm3 (0.0-0.8); Monocytes % (Auto) 14.6 % (0.0-7.3); Platelet Count 160 K/mm3 (140-440); Red Blood Count 3.48 M/mm3 (3.65-5.03); Red Cell Distribution Width 17.7 % (13.2-15.2)
[2021-06-19 07:58] LABS: INR 1.18 (0.87-1.13); Partial Thromboplastin Time 34.5 Sec. (24.2-36.6); Thrombin Time 16.7 Sec. (15.1-19.6)
[2021-06-19 08:01] LABS: Albumin 4.1 g/dL (3.9-5); Bilirubin,Direct 0.3 mg/dL (0-0.2); Calcium 9.7 mg/dL (8.4-10.2)
[2021-06-19 08:02] LABS: Creatine Kinase MB 1.5 ng/mL (0.0-4.0)
--- NOTE | 2021-06-19 08:09 | XRay Report ---
CHEST 1 VIEW 06/19/2021 7:59 AM INDICATION / CLINICAL INFORMATION: stroke. COMPARISON: 10/18/2019 FINDINGS: SUPPORT DEVICES: None. HEART / MEDIASTINUM: Mild cardiac enlargement LUNGS / PLEURA: No significant pulmonary or pleural abnormality. No pneumothorax. ADDITIONAL FINDINGS: No significant additional findings. IMPRESSION: Stable cardiomegaly. Signer Name: Douglas Nuno MD Signed: 06/19/2021 8:04 AM Workstation Name: [id number]
[2021-06-19 08:15] LABS: Chol/HDL Ratio 2.25 %
[2021-06-19] MEDS ORDERED: CYCLOPENTOLATE 1% OU SCH (10:00)
[2021-06-19] MEDS ORDERED: SODIUM CHLORIDE 0.9% 100 ML IV PRN (13:08)
[2021-06-19] MEDS ORDERED: NON-FORMULARY EACH (Furosemide [Lasix Tab] 80 MG Tablet) PO SCH (14:00)
[2021-06-19] MEDS ORDERED: ALBUTEROL 8.5 GM MDI INHALATION IH PRN (14:00)
[2021-06-19] MEDS ORDERED: METOCLOPRAMIDE 10 MG/2 ML INJ IV PRN (14:11)
[2021-06-19] MEDS ORDERED: ONDANSETRON 4 MG/2 ML INJ IV PRN (14:11)
[2021-06-19] MEDS ORDERED: HYDROmorphone 1 MG/1 ML INJ IV PRN (14:11)
[2021-06-19] MEDS ORDERED: ACETAMINOPHEN 325 MG TAB PO PRN (14:11)
[2021-06-19] MEDS ORDERED: oxyCODONE /ACETAMINOPHEN 5-325MG TAB PO PRN (14:11)
[2021-06-19] MEDS ORDERED: MONTELUKAST SODIUM 4 MG PO SCH (14:15)
--- NOTE | 2021-06-19 14:29 | History and Physical Report ---
History of Present Illness Date of examination: 06/19/21 Date of admission: 06/19/21 12:39 Chief complaint: Dizziness since yesterday 10 AM History of present illness: 51-year-old female with multiple medical problems including end-stage renal disease, hypertension, asthma/COPD, insulin-dependent diabetes and CHF comes in for dizziness and standing since 10 AM yesterday. Patient has been feeling very dizzy and unsteady while standing since yesterday morning. This started after the dialysis. Patient does not know whether more volume was taken out.Feels weak all over. No headache. Only dizziness. No weakness in any of the 4 extremities. No fever or chills. No shortness of breath. Patient has been compliant with her medications. - Past Medical History --Previous Medical History?: Yes --Hypertension: Yes (14 YRS) --Congestive Heart Failure: Yes --Diabetes: Yes --Deep Vein Thrombosis: Yes --Renal Disease: Yes (noncompliant with dialysis MW) --Headaches / Migraines: Yes --Psychiatric Treatment: Yes (depression) --Asthma: Yes (SINCE 4YRS OLD) --gout - Surgical History --D. & C.1985. fistula left arm. port in abd for peritoneal dialysis - Social History Smoking Status: Never Smoker -Family history --Htn Review of Systems ROS: Stated complaint: NAUSEA, LIGHT HEADED and dizzy Other details as noted in HPI Constitutional: denies: chills, fever Eyes: denies: eye pain, eye discharge, vision change ENT: denies: ear pain, throat pain, congestion Respiratory: denies: cough, shortness of breath Cardiovascular: denies: chest pain, palpitations, syncope Endocrine: denies: excessive sweating, flushing Gastrointestinal: nausea. denies: abdominal pain, vomiting Genitourinary: denies: discharge Musculoskeletal: denies: back pain, joint swelling Neurological: weakness, abnormal gait, vertigo. denies: headache, numbness, paresthesias, confusion Psychiatric: denies: anxiety, depression Hematological/Lymphatic: denies: easy bleeding Medications and Allergies Allergies Allergy/AdvReac Type Severity Reaction Status Date / Time acetaminophen [From Percocet] AdvReac Dizziness/short Verified 11/14/14 07:15 of breath oxycodone HCl [From Percocet] AdvReac Dizziness/short Verified 11/14/14 07:15 of breath Home Medications Medication Instructions Recorded Confirmed Last Taken Type Albuterol Mdi (or & Nicu Only) 2 puff IH Q4H PRN 07/07/13 10/19/19 12/30/15 History [ProAir HFA Inhaler] Insulin Aspart (Nf) [NovoLOG 100 30 unit SQ TIDAC 07/07/13 10/19/19 12/30/15 History UNITS/ML VIAL] Loratadine (Nf) [Claritin (Nf)] 10 mg PO DAILY 07/07/13 06/19/21 12/30/15 History Furosemide [Lasix TAB] 80 mg PO TID 11/14/14 10/19/19 12/30/15 History Insulin Glargine,Hum.rec.anlog 3 unit SQ QHS 11/14/14 10/19/19 12/30/15 History [Lantus VIAL] hydrALAZINE [Apresoline TAB] 50 mg PO TID 11/14/14 06/19/21 12/31/15 History Albuterol Sulfate [Ventolin HFA] 2 puff IH PRN PRN 12/30/15 10/19/19 12/30/15 History Cinacalcet [Sensipar] 30 mg PO QDAY 12/30/15 10/19/19 12/30/15 History Cyclopentolate 1% [Cyclogyl] 1 drop OU QDAY 12/30/15 10/19/19 12/30/15 History Gabapentin 100 mg PO TID 12/30/15 06/19/21 12/30/15 History Montelukast Sodium 4 mg PO QDAY 12/30/15 10/19/19 12/30/15 History Montelukast Sodium 4 mg PO QID 12/30/15 10/19/19 12/30/15 History Trazodone HCl [traZODone] 50 mg PO HS 12/30/15 10/19/19 12/30/15 History carvediloL [Carvedilol] 3.125 mg PO QDAY 12/30/15 10/19/19 12/31/15 History guaiFENesin DM [Guaifenesin Dm 10 ml PO Q4H PRN #100 ml 10/19/19 Unknown Rx Syrup] AtorvaSTATin [Lipitor] 10 mg PO QHS 06/19/21 06/19/21 Unknown History Budesonide/Formoterol Fumarate 2 puff PO BID 06/19/21 06/19/21 Unknown History [Symbicort 80-4.5 Mcg Inhaler] Nitroglycerin [Nitrostat] 0.4 mg SL Q5M PRN 06/19/21 06/19/21 Unknown History Active Meds: Active Medications Acetaminophen (Acetaminophen 325 Mg Tab) 650 mg PO Q4H PRN PRN Reason: Pain MILD(1-3)/Fever >100.5/LAINEZ Albuterol (Albuterol 8.5 Gm Mdi Inhalation) 2 puff IH Q4H PRN PRN Reason: Shortness Of Breath Atorvastatin Calcium (Atorvastatin 10 Mg Tab) 10 mg PO QHS [place] Carvedilol (Carvedilol 3.125 Mg Tab) 3.125 mg PO QDAY [place] Cinacalcet (Cinacalcet 30 Mg Tab) 30 mg PO QDAY [place] Cyclopentolate HCl (Cyclopentolate 1% Ophth Soln 2 Ml) 1 drops OU QDAY [place] Gabapentin (Gabapentin 100 Mg Cap) 100 mg PO TID [place] Heparin Sodium (Porcine) (Heparin 5,000 Unit/1 Ml Vial) 5,000 unit SUB-Q Q12HR [place] Hydralazine HCl (Hydralazine 25 Mg Tab) 50 mg PO TID [place] Hydromorphone HCl (Hydromorphone 1 Mg/1 Ml Inj) 0.5 mg IV Q3H PRN PRN Reason: Pain , Severe (7-10) Nicardipine/Sodium Chloride (Cardene Drip 40 Mg/200 Ml) 40 mg in 200 mls @ 25 mls/hr IV ONCE ONE; Protocol Stop: 06/19/21 18:59 Last Admin: 06/19/21 12:00 Dose: 5 mg/hr, 25 mls/hr Documented by: Sodium Chloride (Nacl 0.9%) 100 mls @ 999 mls/hr IV LUCILA PRN PRN Reason: Hypotension Insulin Glargine (Insulin Glargine 100 Units/Ml) 15 units SUB-Q QHS [place] Metoclopramide HCl (Metoclopramide 10 Mg/2 Ml Inj) 10 mg IV Q6H PRN PRN Reason: Nausea And Vomiting Miscellaneous Medication (Budesonide/Formoterol Fumarate [Symbicort 80-4.5 Mcg Inhaler]) 2 puff PO BID [facility] Miscellaneous Medication (Furosemide [Lasix Tab]) 80 mg PO Q12H [facility] Miscellaneous Medication (Insulin Aspart (Nf)) 20 unit SQ TIDAC [facility] Miscellaneous Medication (Loratadine (Nf)) 10 mg PO DAILY [facility] Miscellaneous Medication (Montelukast Sodium [Montelukast Sodium]) 4 mg PO QDAY [facility] Ondansetron HCl (Ondansetron 4 Mg/2 Ml Inj) 4 mg IV Q3H PRN PRN Reason: Nausea And Vomiting Oxycodone/Acetaminophen (Oxycodone /Acetaminophen 5-325mg Tab) 1 tab PO Q6H PRN PRN Reason: Pain, Moderate (4-6) Sodium Chloride (Sodium Chloride 0.9% 10 Ml Flush Syringe) 10 ml IV BID [place] Sodium Chloride (Sodium Chloride 0.9% 10 Ml Flush Syringe) 10 ml IV PRN PRN PRN Reason: LINE FLUSH Trazodone HCl (Trazodone 50 Mg Tab) 50 mg PO HS [facility] Exam - Constitutional Vitals: Temp Pulse Resp BP Pulse Ox 98.8 F 71 19 158/129 100 06/19/21 05:14 06/19/21 11:00 06/19/21 11:00 06/19/21 12:45 06/19/21 12:45 General appearance: Present: no acute distress, well-nourished - EENT Eyes: Present: PERRL ENT: hearing intact, clear oral mucosa, other (Papilledema present on fundus exam) - Neck Neck: Present: supple, normal ROM - Respiratory Respiratory effort: normal Respiratory: bilateral: CTA - Cardiovascular Heart rate: 78 Rhythm: regular Heart Sounds: Present: S1 & S2. Absent: rub, click - Extremities Extremities: no ischemia, pulses intact, pulses symmetrical, No edema Peripheral Pulses: within normal limits - Abdominal General gastrointestinal: Present: soft, non-tender, non-distended, normal bowel sounds Female genitourinary: Present: normal - Rectal Rectal Exam: deferred - Integumentary Integumentary: Present: clear, warm, dry - Musculoskeletal Musculoskeletal: gait normal, strength equal bilaterally - Psychiatric Psychiatric: appropriate mood/affect, intact judgment & insight - Neurologic Neurologic: CNII-XII intact, moves all extremities - Allied Health Allied health notes reviewed: nursing, case management HEART Score - HEART Score History: Moderately suspicious Age: 45-65 Risk factors: > 3 risk factors or hx of atherosclerotic disease Troponin: Troponin T 0.068 ng/mL (0.00-0.029) H 06/19/21 09:34 Troponin: 1-3x normal limit - Critical Actions Critical Actions: 4-6 pts:12-16.6% risk of adverse cardiac event. Should be admitted Results - Labs CBC & Chem 7: 06/19/21 06:39 06/19/21 06:39 Labs: Laboratory Last Values WBC 5.4 K/mm3 (4.5-11.0) 06/19/21 06:39 RBC 3.48 M/mm3 (3.65-5.03) L 06/19/21 06:39 Hgb 10.5 gm/dl (10.1-14.3) 06/19/21 06:39 Hct 32.5 % (30.3-42.9) 06/19/21 06:39 MCV 94 fl (79-97) 06/19/21 06:39 MCH 30 pg (28-32) 06/19/21 06:39 MCHC 32 % (30-34) 06/19/21 06:39 RDW 17.7 % (13.2-15.2) H 06/19/21 06:39 Plt Count 160 K/mm3 (140-440) 06/19/21 06:39 Lymph % (Auto) 22.2 % (13.4-35.0) 06/19/21 06:39 [place] % (Auto) 14.6 % (0.0-7.3) H 06/19/21 06:39 Eos % (Auto) 1.3 % (0.0-4.3) 06/19/21 06:39 Baso % (Auto) 0.7 % (0.0-1.8) 06/19/21 06:39 Lymph # (Auto) 1.2 K/mm3 (1.2-5.4) 06/19/21 06:39 [place] # (Auto) 0.8 K/mm3 (0.0-0.8) 06/19/21 06:39 Eos # (Auto) 0.1 K/mm3 (0.0-0.4) 06/19/21 06:39 Baso # (Auto) 0.0 K/mm3 (0.0-0.1) 06/19/21 06:39 Seg Neutrophils % 61.2 % (40.0-70.0) 06/19/21 06:39 Seg Neutrophils # 3.3 K/mm3 (1.8-7.7) 06/19/21 06:39 PT 15.5 Sec. (12.2-14.9) H 06/19/21 06:39 INR 1.18 (0.87-1.13) H 06/19/21 06:39 APTT 34.5 Sec. (24.2-36.6) 06/19/21 06:39 Thrombin Time 16.7 Sec. (15.1-19.6) 06/19/21 06:39 Sodium 141 mmol/L (137-145) 06/19/21 06:39 Potassium 4.2 mmol/L (3.6-5.0) 06/19/21 06:39 Chloride 97.0 mmol/L (98-107) L 06/19/21 06:39 Carbon Dioxide 28 mmol/L (22-30) 06/19/21 06:39 Anion Gap 20 mmol/L 06/19/21 06:39 BUN 23 mg/dL (7-17) H 06/19/21 06:39 Creatinine 6.2 mg/dL (0.6-1.2) H 06/19/21 06:39 Estimated GFR 9 ml/min 06/19/21 06:39 BUN/Creatinine Ratio 4 % 06/19/21 06:39 Glucose 77 mg/dL (65-100) 06/19/21 06:39 Calcium 9.7 mg/dL (8.4-10.2) 06/19/21 06:39 Magnesium 2.20 mg/dL (1.7-2.3) 06/19/21 06:39 Total Bilirubin 0.60 mg/dL (0.1-1.2) 06/19/21 06:39 Direct Bilirubin 0.3 mg/dL (0-0.2) H 06/19/21 06:39 Indirect Bilirubin 0.3 mg/dL 06/19/21 06:39 AST 29 units/L (5-40) 06/19/21 06:39 ALT 23 units/L (7-56) 06/19/21 06:39 Alkaline Phosphatase 134 units/L (35-129) H 06/19/21 06:39 Total Creatine Kinase 77 units/L (30-135) 06/19/21 06:39 CK-MB (CK-2) 1.5 ng/mL (0.0-4.0) 06/19/21 06:39 CK-MB (CK-2) Rel Index 1.8 (0-4) 06/19/21 06:39 Troponin T 0.068 ng/mL (0.00-0.029) H 06/19/21 09:34 NT-Pro-B Natriuret Pep 33064 pg/mL (0-900) H 06/19/21 06:39 Total Protein 7.6 g/dL (6.3-8.2) 06/19/21 06:39 Albumin 4.1 g/dL (3.9-5) 06/19/21 06:39 Albumin/Globulin Ratio 1.2 % 06/19/21 06:39 Triglycerides 91 mg/dL (2-149) 06/19/21 06:39 Cholesterol 88 mg/dL (50-199) 06/19/21 06:39 LDL Cholesterol Direct 34 mg/dL (50-130) L 06/19/21 06:39 HDL Cholesterol 39 mg/dL (40-59) L 06/19/21 06:39 Cholesterol/HDL Ratio 2.25 % 06/19/21 06:39 Plasma/Serum Alcohol < 0.01 % (0-0.07) 06/19/21 06:39 Short CBC 06/19/21 Range/Units 06:39 WBC 5.4 (4.5-11.0) K/mm3 Hgb 10.5 (10.1-14.3) gm/dl Hct 32.5 (30.3-42.9) % Plt Count 160 (140-440) K/mm3 BMP 06/19/21 06:39 Sodium 141 Potassium 4.2 Chloride 97.0 L Carbon Dioxide 28 BUN 23 H Creatinine 6.2 H Glucose 77 Calcium 9.7 Cardiac Enzymes 06/19/21 06/19/21 Range/Units 06:39 09:34 Total Creatine Kinase 77 (30-135) units/L CK-MB (CK-2) 1.5 (0.0-4.0) ng/mL Troponin T 0.075 H 0.068 H (0.00-0.029) ng/mL Liver Function 06/19/21 Range/Units 06:39 Total Bilirubin 0.60 (0.1-1.2) mg/dL Direct Bilirubin 0.3 H (0-0.2) mg/dL AST 29 (5-40) units/L ALT 23 (7-56) units/L Alkaline Phosphatase 134 H (35-129) units/L Albumin 4.1 (3.9-5) g/dL - Imaging and Cardiology EKG: report reviewed (Sinus rhythm, with premature ventricular complexes present but very rare. LVH with secondary repolarization abnormality) Chest x-ray: report reviewed Imaging and Cardiology: Head CT No acute findings Chest x-ray No acute findings Mild cardiac enlargement Head CTA CT angiogram pending Assessment and Plan Assessment and plan: Critical care statement The high probability OF a clinically significant sudden or life-threatening det erioration of the cardiorespiratory system and endocrine system required my full and direct attention, intervention and postoperative management. The aggregate critical care time was 40 minutes. The time is in addition to time spent performing reported procedures but includes the followin: Data review and interpretation 2: Patient assessment and monitoring of vital signs 3: Documentation 4:: Medication orders and management Advance Directives: Yes (Full code) VTE prophylaxis?: Chemical Plan of care discussed with patient/family: Yes - Patient Problems (1) Hypertensive emergency Current Visit: Yes Status: Acute Plan to address problem: Patient initiated on Cardene drip Neck patient states she is compliant with taking antihypertensives We will adjust her medications Patient has papilledema on fundus examination (2) Dizziness on standing Current Visit: Yes Status: Acute Plan to address problem: Possibly secondary to volume depletion after dialysis yesterday Also uncontrolled blood pressure contributing to dizziness We will try to correct volume depletion and control the blood pressure Patient has papilledema on fundus exam (3) Anemia in chronic renal disease Current Visit: No Status: Chronic Qualifiers: Chronic kidney disease stage: on chronic dialysis Qualified Code(s): N18.6 - End stage renal disease; D63.1 - Anemia in chronic kidney disease; Z99.2 - Dependence on renal dialysis Plan to address problem: Will defer to nephrology regarding Epogen (4) ESRD needing dialysis Current Visit: No Status: Acute (5) CHF (congestive heart failure) Current Visit: Yes Status: Chronic Qualifiers: Heart failure type: combined systolic and diastolic Plan to address problem: Patient on Lasix 80 mg twice a day Add potassium to her Lasix regimen Echocardiogram for ejection fraction and valve function (6) Asthma Current Visit: No Status: Ruled-out Qualifiers: Asthma persistence: unspecified Asthma complication type: unspecified Plan to address problem: Continue Singulair and Symbicort and nebulizer treatments as needed (7) IDDM (insulin dependent diabetes mellitus) Current Visit: Yes Status: Acute Plan to address problem: Continue home insulin and coverage Check hemoglobin A1c (8) DVT prophylaxis Current Visit: Yes Status: Acute Plan to address problem: On heparin and GI prophylaxis (9) Discharge planning issues Current Visit: No Status: Acute Plan to address problem: Possible discharge in 48 to 72 hours Home health to be arranged Physical therapy to be arranged as outpatient
[2021-06-19] MEDS ORDERED: FUROSEMIDE 40 MG TAB PO SCH (15:00)
[2021-06-19] MEDS ORDERED: CINACALCET 30 MG TAB PO SCH (15:00)
[2021-06-19] MEDS ORDERED: carvediloL 3.125 MG TAB PO SCH (15:00)
[2021-06-19] MEDS ORDERED: NON-FORMULARY EACH (Insulin Aspart (Nf) 100 UNIT/ML Units) SQ SCH (16:30)
[2021-06-19 19:51] LABS: Hepatitis C Virus Antibody Non-Reactive (NonReactive)
[2021-06-19 20:16] LABS: Hepatitis B Surface Antigen Nonreactive (Negative)
[2021-06-19] MEDS ORDERED: ALBUTEROL 2.5 MG/3 ML NEBU IH PRN (20:32)
[2021-06-19] MEDS ORDERED: traZODone 50 MG TAB PO SCH (22:00)
[2021-06-19] MEDS ORDERED: carvediloL 12.5 MG TAB PO SCH (22:00)
[2021-06-19] MEDS ORDERED: INSULIN GLARGINE 100 UNITS/ML SUB-Q SCH (22:00)
[2021-06-19] MEDS: ARFORMOTEROL 15 MCG/2 ML NEBU IH SCH (22:27)
[2021-06-19] MEDS: BUDESONIDE 0.5 MG/2 ML NEBU IH SCH (22:28)
[2021-06-19] MEDS: hydrALAZINE 25 MG TAB PO SCH (23:23)
[2021-06-19] MEDS: POTASSIUM CHLORIDE ER 20 MEQ TAB PO SCH (23:24)
[2021-06-19] MEDS: GABAPENTIN 100 MG CAP PO SCH (23:24)
[2021-06-19] MEDS: VALSARTAN 160MG TAB PO SCH (23:25)
[2021-06-19] MEDS: HEPARIN 5,000 UNIT/1 ML VIAL SUB-Q SCH (23:29)
[2021-06-20 05:47] LABS: Hematocrit 31.1 % (30.3-42.9); Hemoglobin 10.1 gm/dl (10.1-14.3); Mean Corpuscular HGB Conc 33 % (30-34); Mean Corpuscular Volume 93 fl (79-97); Platelet Count 150 K/mm3 (140-440); Red Blood Count 3.33 M/mm3 (3.65-5.03)
[2021-06-20 06:15] LABS: Calcium 8.9 mg/dL (8.4-10.2)
--- NOTE | 2021-06-20 08:34 | Electrocardiograph Report ---
[facility] Test Date: 2021-06-19 Test Time: 12:52:47 Pat Name: SILVESTRE HAAS Department: Room: [facility] Gender: F [address] Justice: tristen : 1970 Requested By: JANUSZ NICHOLS Order Number: [id number] Reading MD: Tamir Carey Measurements Intervals Early Rate: 68 P: 56 MI: 183 QRS: 42 QRSD: 96 T: 81 QT: 470 QTc: 502 Interpretive Statements Sinus rhythm Ventricular premature complex LVH with secondary repolarization abnormality No previous ECG available for comparison Electronically Signed On 06-20-2021 8:34:10 EDT by Tamir Carey
[2021-06-20] MEDS: ARFORMOTEROL 15 MCG/2 ML NEBU IH SCH ×2 (08:45→20:12)
[2021-06-20] MEDS: BUDESONIDE 0.5 MG/2 ML NEBU IH SCH ×2 (08:45→20:12)
[2021-06-20 09:56] LABS: Total Cells Counted 100
[2021-06-20 09:57] LABS: Hypochromasia 1+; Large Platelets 1+; Ovalocytes 1+; Platelet Estimate Consistent w Auto; Toxic Granulation 1+; Toxic Vacuolation 1+
[2021-06-20] MEDS ORDERED: NON-FORMULARY EACH (Loratadine (Nf) 10 MG Tablet) PO SCH (10:00)
[2021-06-20] MEDS ORDERED: CETIRIZINE 10 MG TAB PO SCH (10:00)
[2021-06-20] MEDS: INSULIN LISPRO 100 UNIT/ML SUB-Q SCH ×4 (10:15→11:30)
[2021-06-20] MEDS: POTASSIUM CHLORIDE ER 20 MEQ TAB PO SCH (10:32)
[2021-06-20] MEDS: GABAPENTIN 100 MG CAP PO SCH (10:32)
[2021-06-20] MEDS: hydrALAZINE 25 MG TAB PO SCH ×2 (10:33→10:37)
[2021-06-20] MEDS: VALSARTAN 160MG TAB PO SCH (10:33)
[2021-06-20] MEDS: HEPARIN 5,000 UNIT/1 ML VIAL SUB-Q SCH ×2 (10:37→18:07)
--- NOTE | 2021-06-20 10:45 | Consultation ---
History of Present Illness - Reason for Consult Consult date: 06/20/21 end stage renal disease Requesting physician: SOMMER GAYLE - History of Present Illness This is a 51 yo F with past medical history of Hypertension, Type 2 DM, asthma/COPD, ESRD, who presents to ER with acute onset of dizziness, unsteady gate and imbalance which started after HD on 06/18. no overt volume removal reported. in ER patient was found to be in hypertensive urgency with BP as high as 220/80s mmHg. CT head was obtained which showed no acute findings. Renal consult was requested for management of ESRD Past History Past Medical History: COPD, diabetes, hypertension, renal failure Past Surgical History: Other (AVF placement ) Social history: denies: smoking, alcohol abuse, prescription drug abuse, IV drug use Family history: hypertension Medications and Allergies Allergies Allergy/AdvReac Type Severity Reaction Status Date / Time acetaminophen [From Percocet] AdvReac BLIND Verified 06/20/21 09:23 lisinopril AdvReac COUGH Verified 06/20/21 09:23 oxycodone HCl [From Percocet] AdvReac BLIND Verified 06/20/21 09:23 Home Medications Medication Instructions Recorded Confirmed Last Taken Type Albuterol Mdi (or & Nicu Only) 2 puff IH QID PRN 07/07/13 10/19/19 12/30/15 History [ProAir HFA Inhaler] Insulin Aspart (Nf) [NovoLOG 100 15 unit SQ TIDAC 07/07/13 10/19/19 12/30/15 History UNITS/ML VIAL] Loratadine (Nf) [Claritin (Nf)] 10 mg PO DAILY 07/07/13 06/19/21 12/30/15 History Insulin Glargine,Hum.rec.anlog 15 unit SQ QHS 11/14/14 10/19/19 12/30/15 History [Lantus VIAL] hydrALAZINE [Apresoline TAB] 50 mg PO TID 11/14/14 06/19/21 12/31/15 History Cinacalcet [Sensipar] 60 mg PO QDAY 12/30/15 10/19/19 12/30/15 History Cyclopentolate 1% [Cyclogyl] 1 drop OU QDAY 04/18/16 10/08/21 04/18/16 History Gabapentin 100 mg PO TID 12/30/15 06/19/21 12/30/15 History Montelukast Sodium 4 mg PO QDAY 12/30/15 06/20/21 12/30/15 History AtorvaSTATin [Lipitor] 10 mg PO QHS 06/19/21 06/19/21 Unknown History Nitroglycerin [Nitrostat] 0.4 mg SL Q5M PRN 06/19/21 06/19/21 Unknown History Budesonide/Formoterol Fumarate 2 puff PO BID 06/20/21 06/20/21 Unknown History [Symbicort 160-4.5 Mcg Inhaler] Ipratropium/Albuterol Sulfate 1 spray IH QID 06/20/21 06/20/21 Unknown History [Combivent Respimat] Ketotifen Fumarate [Zaditor] 5 ml OU QID PRN 06/20/21 06/20/21 Unknown History Lidocain2.5%/Prilocai2.5% [Emla] 1 applic TP PRN 06/20/21 Unknown History Sucroferric Oxyhydroxide(Nf) 1,000 mg PO PRN 06/20/21 Unknown History [Velphoro (Nf)] Sucroferric Oxyhydroxide(Nf) 1,500 mg PO TIDWM 06/20/21 06/20/21 Unknown History [Velphoro (Nf)] Trazodone HCl 100 mg PO QHS 06/20/21 06/20/21 Unknown History carvediloL [Coreg] 12.5 mg PO BIDWM 06/20/21 06/20/21 Unknown History Active Meds: Active Medications Acetaminophen (Acetaminophen 325 Mg Tab) 650 mg PO Q4H PRN PRN Reason: Pain MILD(1-3)/Fever >100.5/LAINEZ Albuterol (Albuterol 2.5 Mg/3 Ml Nebu) 2.5 mg IH Q4HRT PRN PRN Reason: Shortness Of Breath Arformoterol Tartrate (Arformoterol 15 Mcg/2 Ml Nebu) 15 mcg IH Q12HRT [facility] Last Admin: 06/20/21 08:45 Dose: 15 mcg Documented by: Atorvastatin Calcium (Atorvastatin 10 Mg Tab) 10 mg PO QHS [facility] Last Admin: 06/20/21 00:09 Dose: 10 mg Documented by: Budesonide (Budesonide 0.5 Mg/2 Ml Nebu) 0.5 mg IH Q12HRT [facility] Last Admin: 06/20/21 08:45 Dose: 0.5 mg Documented by: Carvedilol (Carvedilol 12.5 Mg Tab) 12.5 mg PO Q12HR [facility] Last Admin: 06/20/21 00:10 Dose: 12.5 mg Documented by: Cetirizine HCl (Cetirizine 10 Mg Tab) 10 mg PO DAILY [facility] Cinacalcet (Cinacalcet 30 Mg Tab) 30 mg PO QDAY [facility] Cyclopentolate HCl (Cyclopentolate 1% Ophth Soln 2 Ml) 1 drops OU QDAY [facility] Last Admin: 06/20/21 10:31 Dose: 1 drops Documented by: Furosemide (Furosemide 40 Mg Tab) 80 mg PO BID [place] Gabapentin (Gabapentin 100 Mg Cap) 100 mg PO TID [facility] Last Admin: 06/20/21 10:32 Dose: 100 mg Documented by: Heparin Sodium (Porcine) (Heparin 5,000 Unit/1 Ml Vial) 5,000 unit SUB-Q Q12HR [facility] Last Admin: 06/20/21 10:37 Dose: 5,000 unit Documented by: Hydralazine HCl (Hydralazine 25 Mg Tab) 50 mg PO TID [facility] Last Admin: 06/20/21 10:37 Dose: 50 mg Documented by: Hydromorphone HCl (Hydromorphone 1 Mg/1 Ml Inj) 0.5 mg IV Q3H PRN PRN Reason: Pain , Severe (7-10) Sodium Chloride (Nacl 0.9%) 100 mls @ 999 mls/hr IV LUCILA PRN PRN Reason: Hypotension Sodium Chloride (Nacl 0.9%) 100 mls @ 999 mls/hr IV LUCILA PRN PRN Reason: Hypotension Insulin Glargine (Insulin Glargine 100 Units/Ml) 15 units SUB-Q QHS [facility] Last Admin: 06/19/21 23:26 Dose: 15 units Documented by: Insulin Human Lispro (Insulin Lispro 100 Unit/Ml) 20 unit SUB-Q TIDAC [facility] Last Admin: 06/20/21 10:16 Dose: Not Given Documented by: Insulin Human Lispro (Insulin Lispro 100 Unit/Ml) 0 unit SUB-Q ACHS [facility]; Protocol Last Admin: 06/20/21 10:15 Dose: Not Given Documented by: Metoclopramide HCl (Metoclopramide 10 Mg/2 Ml Inj) 10 mg IV Q6H PRN PRN Reason: Nausea And Vomiting Miscellaneous Medication (Montelukast Sodium [Montelukast Sodium]) 4 mg PO QDAY [facility] Ondansetron HCl (Ondansetron 4 Mg/2 Ml Inj) 4 mg IV Q3H PRN PRN Reason: Nausea And Vomiting Potassium Chloride (Potassium Chloride Er 20 Meq Tab) 20 meq PO Q12HR [facility] Last Admin: 06/20/21 10:32 Dose: 20 meq Documented by: Sodium Chloride (Sodium Chloride 0.9% 10 Ml Flush Syringe) 10 ml IV BID [facility] Last Admin: 06/20/21 10:37 Dose: 10 ml Documented by: Sodium Chloride (Sodium Chloride 0.9% 10 Ml Flush Syringe) 10 ml IV PRN PRN PRN Reason: LINE FLUSH Trazodone HCl (Trazodone 50 Mg Tab) 50 mg PO HS [facility] Last Admin: 06/19/21 23:24 Dose: 50 mg Documented by: Valsartan (Valsartan 160mg Tab) 160 mg PO Q12HR [facility] Last Admin: 06/20/21 10:33 Dose: 160 mg Documented by: Review of Systems All systems: negative Constitutional: weakness, malaise Neurological: vertigo Exam - Vital Signs Vital signs: Vital Signs Temp Pulse Resp BP Pulse Ox 98.8 F 69 20 194/84 100 06/19/21 05:14 06/19/21 05:14 06/19/21 05:14 06/19/21 05:14 06/19/21 05:14 - General Appearance General appearance: well-developed, well-nourished, appears stated age EENT: ATNC, PERRL, mucous membranes moist Neck: Present: neck supple Respiratory: Clear to Ascultation Heart: regular, S1S2 Gastrointestinal: Present: normoactive bowel sounds Integumentary: no rash Neurologic: no focal deficit, alert and oriented x3, strength 5/5, CN 3-12 intact Psychiatric: mood/affect appropriate, cooperative Results - Lab Results 06/20/21 05:04 06/20/21 05:04 Most recent lab results Calcium 8.9 mg/dL (8.4-10.2) 10/08/21 05:04 Magnesium 2.20 mg/dL (1.7-2.3) 06/19/21 06:39 Assessment and Plan - Patient Problems (1) ESRD (end stage renal disease) on dialysis Current Visit: Yes Status: Acute Plan to address problem: HD performed last night for additional volume/BP control. Cont HD on MWF schedule. (2) Dizziness on standing Current Visit: Yes Status: Acute Plan to address problem: work up as per neurology (3) DM2 (diabetes mellitus, type 2) Current Visit: Yes Status: Acute Plan to address problem: diabetes management as per primary attending (4) Hypertensive emergency Current Visit: Yes Status: Acute Plan to address problem: BP improved on current meds and s/p HD with additional ultrafiltration for volume/BP control
[2021-06-20] MEDS ORDERED: SODIUM CHLORIDE 0.9% 100 ML IV PRN (11:00)
--- NOTE | 2021-06-20 12:39 | Consultation ---
History of Present Illness - Reason for Consult Consult date: 06/20/21 Hypertensive Urgency/Emergency Requesting physician: SOMMER GAYLE - History of Present Illness 51 y/o female with known HTN and renal disease admitted with nausea and vomiting and dizziness. Hypertensive on arrival yesterday morning but normotensive now. Originally ordered to come to ICU but now has been downgraded to floor. All other issues appear stable. Satting well on 2 liters NC. Past History Past Medical History: COPD, diabetes, hypertension, renal failure Past Surgical History: Other (AVF placement ) Social history: denies: smoking, alcohol abuse, prescription drug abuse, IV drug use Family history: hypertension Medications and Allergies Allergies Allergy/AdvReac Type Severity Reaction Status Date / Time acetaminophen [From Percocet] AdvReac BLIND Verified 06/20/21 09:23 lisinopril AdvReac COUGH Verified 06/20/21 09:23 oxycodone HCl [From Percocet] AdvReac BLIND Verified 06/20/21 09:23 Home Medications Medication Instructions Recorded Confirmed Last Taken Type Albuterol Mdi (or & Nicu Only) 2 puff IH QID PRN 07/07/13 10/19/19 12/30/15 History [ProAir HFA Inhaler] Insulin Aspart (Nf) [NovoLOG 100 15 unit SQ TIDAC 07/07/13 10/19/19 12/30/15 History UNITS/ML VIAL] Loratadine (Nf) [Claritin (Nf)] 10 mg PO DAILY 07/07/13 06/19/21 12/30/15 History Insulin Glargine,Hum.rec.anlog 15 unit SQ QHS 11/14/14 10/19/19 12/30/15 History [Lantus VIAL] hydrALAZINE [Apresoline TAB] 50 mg PO TID 11/14/14 06/19/21 12/31/15 History Cinacalcet [Sensipar] 60 mg PO QDAY 12/30/15 10/19/19 12/30/15 History Cyclopentolate 1% [Cyclogyl] 1 drop OU QDAY 12/30/15 06/20/21 12/30/15 History Gabapentin 100 mg PO TID 12/30/15 06/19/21 12/30/15 History Montelukast Sodium 4 mg PO QDAY 12/30/15 06/20/21 12/30/15 History AtorvaSTATin [Lipitor] 10 mg PO QHS 06/19/21 06/19/21 Unknown History Nitroglycerin [Nitrostat] 0.4 mg SL Q5M PRN 06/19/21 06/19/21 Unknown History Budesonide/Formoterol Fumarate 2 puff PO BID 06/20/21 06/20/21 Unknown History [Symbicort 160-4.5 Mcg Inhaler] Ipratropium/Albuterol Sulfate 1 spray IH QID 06/20/21 06/20/21 Unknown History [Combivent Respimat] Ketotifen Fumarate [Zaditor] 5 ml OU QID PRN 06/20/21 06/20/21 Unknown History Lidocain2.5%/Prilocai2.5% [Emla] 1 applic TP PRN 06/20/21 Unknown History Sucroferric Oxyhydroxide(Nf) 1,000 mg PO PRN 06/20/21 Unknown History [Velphoro (Nf)] Sucroferric Oxyhydroxide(Nf) 1,500 mg PO TIDWM 06/20/21 06/20/21 Unknown History [Velphoro (Nf)] Trazodone HCl 100 mg PO QHS 06/20/21 06/20/21 Unknown History carvediloL [Coreg] 12.5 mg PO BIDWM 06/20/21 06/20/21 Unknown History Active Meds: Active Medications Acetaminophen (Acetaminophen 325 Mg Tab) 650 mg PO Q4H PRN PRN Reason: Pain MILD(1-3)/Fever >100.5/LAINEZ Albuterol (Albuterol 2.5 Mg/3 Ml Nebu) 2.5 mg IH Q4HRT PRN PRN Reason: Shortness Of Breath Arformoterol Tartrate (Arformoterol 15 Mcg/2 Ml Nebu) 15 mcg IH Q12HRT [facility] Last Admin: 06/20/21 08:45 Dose: 15 mcg Documented by: Atorvastatin Calcium (Atorvastatin 10 Mg Tab) 10 mg PO QHS [facility] Last Admin: 06/20/21 00:09 Dose: 10 mg Documented by: Budesonide (Budesonide 0.5 Mg/2 Ml Nebu) 0.5 mg IH Q12HRT [facility] Last Admin: 06/20/21 08:45 Dose: 0.5 mg Documented by: Carvedilol (Carvedilol 12.5 Mg Tab) 12.5 mg PO Q12HR [facility] Last Admin: 06/20/21 00:10 Dose: 12.5 mg Documented by: Cetirizine HCl (Cetirizine 10 Mg Tab) 10 mg PO DAILY [facility] Cinacalcet (Cinacalcet 30 Mg Tab) 30 mg PO QDAY [facility] Cyclopentolate HCl (Cyclopentolate 1% Ophth Soln 2 Ml) 1 drops OU QDAY [facility] Last Admin: 06/20/21 10:31 Dose: 1 drops Documented by: Furosemide (Furosemide 40 Mg Tab) 80 mg PO BID [facility] Gabapentin (Gabapentin 100 Mg Cap) 100 mg PO TID [facility] Last Admin: 06/20/21 10:32 Dose: 100 mg Documented by: Heparin Sodium (Porcine) (Heparin 5,000 Unit/1 Ml Vial) 5,000 unit SUB-Q Q12HR [facility] Last Admin: 06/20/21 10:37 Dose: 5,000 unit Documented by: Hydralazine HCl (Hydralazine 25 Mg Tab) 50 mg PO TID [facility] Last Admin: 06/20/21 10:37 Dose: 50 mg Documented by: Hydromorphone HCl (Hydromorphone 1 Mg/1 Ml Inj) 0.5 mg IV Q3H PRN PRN Reason: Pain , Severe (7-10) Sodium Chloride (Nacl 0.9%) 100 mls @ 999 mls/hr IV LUCILA PRN PRN Reason: Hypotension Insulin Glargine (Insulin Glargine 100 Units/Ml) 15 units SUB-Q QHS [facility] Last Admin: 06/19/21 23:26 Dose: 15 units Documented by: Insulin Human Lispro (Insulin Lispro 100 Unit/Ml) 20 unit SUB-Q TIDAC [facility] Last Admin: 06/20/21 10:16 Dose: Not Given Documented by: Insulin Human Lispro (Insulin Lispro 100 Unit/Ml) 0 unit SUB-Q ACHS [facility]; Protocol Last Admin: 06/20/21 10:15 Dose: Not Given Documented by: Metoclopramide HCl (Metoclopramide 10 Mg/2 Ml Inj) 10 mg IV Q6H PRN PRN Reason: Nausea And Vomiting Miscellaneous Medication (Montelukast Sodium [Montelukast Sodium]) 4 mg PO QDAY [facility] Ondansetron HCl (Ondansetron 4 Mg/2 Ml Inj) 4 mg IV Q3H PRN PRN Reason: Nausea And Vomiting Potassium Chloride (Potassium Chloride Er 20 Meq Tab) 20 meq PO Q12HR [facility] Last Admin: 06/20/21 10:32 Dose: 20 meq Documented by: Sodium Chloride (Sodium Chloride 0.9% 10 Ml Flush Syringe) 10 ml IV BID [facility] Last Admin: 06/20/21 10:37 Dose: 10 ml Documented by: Sodium Chloride (Sodium Chloride 0.9% 10 Ml Flush Syringe) 10 ml IV PRN PRN PRN Reason: LINE FLUSH Trazodone HCl (Trazodone 50 Mg Tab) 50 mg PO HS [facility] Last Admin: 06/19/21 23:24 Dose: 50 mg Documented by: Valsartan (Valsartan 160mg Tab) 160 mg PO Q12HR [facility] Last Admin: 06/20/21 10:33 Dose: 160 mg Documented by: Exam - Constitutional Vitals: Temp Pulse Resp BP Pulse Ox 98.0 F 61 19 133/82 96 06/19/21 22:46 06/20/21 10:37 06/20/21 10:27 06/20/21 10:37 06/20/21 10:27 General appearance: Present: no acute distress, well-nourished, obese - Respiratory Respiratory: bilateral: CTA, diminished Results - Labs CBC & Chem 7: 06/20/21 05:04 06/20/21 05:04 Labs: Abnormal lab results 06/19/21 06/20/21 06/20/21 Range/Units 22:22 05:04 05:04 RBC 3.33 L (3.65-5.03) M/mm3 RDW 18.0 H (13.2-15.2) % Seg Neuts % (Manual) 73.0 H (40.0-70.0) % Lymphocytes # (Manual) 1.0 L (1.2-5.4) K/mm3 BUN 18 H (7-17) mg/dL Creatinine 5.0 H (0.6-1.2) mg/dL Glucose 117 H (65-100) mg/dL POC Glucose 125 H (70-105) mg/dL Hemoglobin A1c (4-6) % Alkaline Phosphatase 136 H (35-129) units/L 06/20/21 Range/Units 05:04 RBC (3.65-5.03) M/mm3 RDW (13.2-15.2) % Seg Neuts % (Manual) (40.0-70.0) % Lymphocytes # (Manual) (1.2-5.4) K/mm3 BUN (7-17) mg/dL Creatinine (0.6-1.2) mg/dL Glucose (65-100) mg/dL POC Glucose (70-105) mg/dL Hemoglobin A1c 7.4 H (4-6) % Alkaline Phosphatase (35-129) units/L - Imaging and Cardiology Chest x-ray: image reviewed (cardiomegaly but otherwise clear) Assessment and Plan 51 y/o female with hypertensive urgency/emergency, now resolved Has been downgraded to floor BP control per primary team and renal Will sign off, feel free to reconsult if needed.
--- NOTE | 2021-06-20 18:19 | Progress Note ---
Assessment and Plan Critical care statement The high probability OF a clinically significant sudden or life-threatening deterioration of the cardiorespiratory system and endocrine system required my full and direct attention, intervention and postoperative management. The aggregate critical care time was 40 minutes. The time is in addition to time spent performing reported procedures but includes the followin: Data review and interpretation 2: Patient assessment and monitoring of vital signs 3: Documentation 4:: Medication orders and management - Patient Problems (1) Hypertensive emergency Status: Acute Plan to address problem: Patient initiated on Cardene drip Neck patient states she is compliant with taking antihypertensives We will adjust her medications Patient has papilledema on fundus examination (2) Dizziness on standing Status: Acute Plan to address problem: Possibly secondary to volume depletion after dialysis yesterday Also uncontrolled blood pressure contributing to dizziness We will try to correct volume depletion and control the blood pressure Patient has papilledema on fundus exam (3) Anemia in chronic renal disease Status: Chronic Qualifiers: Chronic kidney disease stage: on chronic dialysis Qualified Code(s): N18.6 - End stage renal disease; D63.1 - Anemia in chronic kidney disease; Z99.2 - Dependence on renal dialysis Plan to address problem: Will defer to nephrology regarding Epogen (4) ESRD needing dialysis Status: Acute (5) CHF (congestive heart failure) Status: Chronic Qualifiers: Heart failure type: combined systolic and diastolic Plan to address problem: Patient on Lasix 80 mg twice a day Add potassium to her Lasix regimen Echocardiogram for ejection fraction and valve function (6) Asthma Status: Ruled-out Qualifiers: Asthma persistence: unspecified Asthma complication type: unspecified Plan to address problem: Continue Singulair and Symbicort and nebulizer treatments as needed (7) IDDM (insulin dependent diabetes mellitus) Status: Acute Plan to address problem: Continue home insulin and coverage Check hemoglobin A1c (8) DVT prophylaxis Status: Acute Plan to address problem: On heparin and GI prophylaxis (9) Discharge planning issues Status: Acute Plan to address problem: Possible discharge in 48 to 72 hours Home health to be arranged Physical therapy to be arranged as outpatient Subjective Date of service: 06/20/21 Principal diagnosis: Hypertensive emergency Interval history: 51-year-old female with multiple medical problems including end-stage renal disease, hypertension, asthma/COPD, insulin-dependent diabetes and CHF comes in for dizziness and standing since 10 AM yesterday. Patient has been feeling very dizzy and unsteady while standing since yesterday morning. This started after the dialysis. Patient does not know whether more volume was taken out.Feels weak all over. No headache. Only dizziness. No weakness in any of the 4 extremities. No fever or chills. No shortness of breath. Patient has been compliant with her medications. Objective - Constitutional Vitals: Vital Signs - 12hr 06/20/21 06/20/21 06/20/21 07:01 07:50 08:01 Temperature Pulse Rate 60 Pulse Rate [ Throughout] Respiratory 18 Rate Respiratory Rate [ Throughout] Blood Pressure 159/54 159/54 Blood Pressure 148/53 [Left] O2 Sat by Pulse 100 100 99 Oximetry O2 Sat by Pulse Oximetry [ Throughout] 06/20/21 06/20/21 06/20/21 08:49 09:01 10:01 Temperature Pulse Rate Pulse Rate [ 59 L Throughout] Respiratory Rate Respiratory 18 Rate [ Throughout] Blood Pressure 148/53 183/56 Blood Pressure [Left] O2 Sat by Pulse 99 100 100 Oximetry O2 Sat by Pulse Oximetry [ Throughout] 06/20/21 06/20/21 06/20/21 10:27 10:33 10:37 Temperature Pulse Rate 63 63 61 Pulse Rate [ Throughout] Respiratory 19 Rate Respiratory Rate [ Throughout] Blood Pressure 133/82 133/82 Blood Pressure 133/82 [Left] O2 Sat by Pulse 96 Oximetry O2 Sat by Pulse Oximetry [ Throughout] 06/20/21 06/20/21 06/20/21 11:01 12:00 13:00 Temperature Pulse Rate Pulse Rate [ Throughout] Respiratory Rate Respiratory Rate [ Throughout] Blood Pressure 157/64 161/74 Blood Pressure [Left] O2 Sat by Pulse 99 100 100 Oximetry O2 Sat by Pulse Oximetry [ Throughout] 06/20/21 06/20/21 06/20/21 13:30 13:45 14:00 Temperature 97.7 F Pulse Rate 63 70 60 Pulse Rate [ Throughout] Respiratory 20 Rate Respiratory Rate [ Throughout] Blood Pressure 178/61 104/62 152/54 Blood Pressure [Left] O2 Sat by Pulse Oximetry O2 Sat by Pulse 98 Oximetry [ Throughout] 06/20/21 06/20/21 06/20/21 14:15 14:30 14:45 Temperature Pulse Rate 63 65 66 Pulse Rate [ Throughout] Respiratory Rate Respiratory Rate [ Throughout] Blood Pressure 125/57 158/52 163/59 Blood Pressure [Left] O2 Sat by Pulse Oximetry O2 Sat by Pulse Oximetry [ Throughout] 06/20/21 06/20/21 06/20/21 15:00 15:15 15:30 Temperature Pulse Rate 66 66 65 Pulse Rate [ Throughout] Respiratory Rate Respiratory Rate [ Throughout] Blood Pressure 135/57 145/62 168/66 Blood Pressure [Left] O2 Sat by Pulse Oximetry O2 Sat by Pulse Oximetry [ Throughout] 06/20/21 06/20/21 06/20/21 15:45 16:00 16:15 Temperature Pulse Rate 65 63 63 Pulse Rate [ Throughout] Respiratory Rate Respiratory Rate [ Throughout] Blood Pressure 160/59 164/68 164/98 Blood Pressure [Left] O2 Sat by Pulse Oximetry O2 Sat by Pulse Oximetry [ Throughout] 06/20/21 06/20/21 06/20/21 16:30 16:45 17:19 Temperature 98.2 F Pulse Rate 63 67 66 Pulse Rate [ Throughout] Respiratory 18 Rate Respiratory Rate [ Throughout] Blood Pressure 164/98 176/65 149/53 Blood Pressure [Left] O2 Sat by Pulse Oximetry O2 Sat by Pulse 98 Oximetry [ Throughout] General appearance: Present: no acute distress, well-nourished - EENT Eyes: PERRL, EOM intact ENT: hearing intact, clear oral mucosa Ears: bilateral: normal - Neck Neck: supple, normal ROM - Respiratory Respiratory effort: normal Respiratory: bilateral: CTA - Breasts Breasts: normal - Cardiovascular Heart rate: 78 Rhythm: regular Heart Sounds: Present: S1 & S2. Absent: gallop, rub Extremities: pulses intact, No edema, normal color, Full ROM - Gastrointestinal General gastrointestinal: Present: soft, non-tender, non-distended, normal bowel sounds - Genitourinary Female genitourinary: normal - Integumentary Integumentary: clear, warm, dry - Musculoskeletal Musculoskeletal: 1, strength equal bilaterally - Neurologic Neurologic: moves all extremities - Psychiatric Psychiatric: memory intact, appropriate mood/affect, intact judgment & insight - Labs CBC & Chem 7: 06/20/21 05:04 06/20/21 05:04 Labs: Abnormal lab results 06/19/21 06/20/21 06/20/21 Range/Units 22:22 05:04 05:04 RBC 3.33 L (3.65-5.03) M/mm3 RDW 18.0 H (13.2-15.2) % Seg Neuts % (Manual) 73.0 H (40.0-70.0) % Lymphocytes # (Manual) 1.0 L (1.2-5.4) K/mm3 BUN 18 H (7-17) mg/dL Creatinine 5.0 H (0.6-1.2) mg/dL Glucose 117 H (65-100) mg/dL POC Glucose 125 H (70-105) mg/dL Hemoglobin A1c (4-6) % Alkaline Phosphatase 136 H (35-129) units/L 06/20/21 Range/Units 05:04 RBC (3.65-5.03) M/mm3 RDW (13.2-15.2) % Seg Neuts % (Manual) (40.0-70.0) % Lymphocytes # (Manual) (1.2-5.4) K/mm3 BUN (7-17) mg/dL Creatinine (0.6-1.2) mg/dL Glucose (65-100) mg/dL POC Glucose (70-105) mg/dL Hemoglobin A1c 7.4 H (4-6) % Alkaline Phosphatase (35-129) units/L HEART Score - HEART Score Age: 45-65 Risk factors: > 3 risk factors or hx of atherosclerotic disease Troponin: Troponin T 0.068 ng/mL (0.00-0.029) H 06/19/21 09:34 Troponin: 1-3x normal limit - Critical Actions Critical Actions: 4-6 pts:12-16.6% risk of adverse cardiac event. Should be admitted
[2021-06-20 19:09] VITALS: BP 150/63
--- NOTE | 2021-06-20 19:52 | Discharge Summary ---
Providers - Providers Date of Admission: 06/19/21 12:39 Date of discharge: 06/20/21 Attending physician: SOMMER GAYLE 06/19/21 12:41 Consult to Physician [CONS] Stat Comment: Consulting Provider: DELIA JARRELL Physician Instructions: Reason For Exam: Dialysis 06/19/21 14:11 Consult to Physician [CONS] Routine Comment: Consulting Provider: SIVA CARVAJAL Physician Instructions: Reason For Exam: Hypertensive emergency Primary care physician: FACULTY RESEARCH PHYSICIAN Hospitalization Condition: Critical Hospital course: Subjective Date of service: 06/20/21 Principal diagnosis: Hypertensive emergency Interval history: 51-year-old female with multiple medical problems including end-stage renal disease, hypertension, asthma/COPD, insulin-dependent diabetes and CHF comes in for dizziness and standing since 10 AM yesterday. Patient has been feeling very dizzy and unsteady while standing since yesterday morning. This started after the dialysis. Patient does not know whether more volume was taken out.Feels weak all over. No headache. Only dizziness. No weakness in any of the 4 extremities. No fever or chills. No shortness of breath. Patient has been compliant with her medications. Assessment and Plan Critical care statement The high probability OF a clinically significant sudden or life-threatening deterioration of the cardiorespiratory system and endocrine system required my full and direct attention, intervention and postoperative management. The aggregate critical care time was 40 minutes. The time is in addition to time spent performing reported procedures but includes the followin: Data review and interpretation 2: Patient assessment and monitoring of vital signs 3: Documentation 4:: Medication orders and management - Patient Problems (1) Hypertensive emergency Status: Acute Plan to address problem: Better controlled (2) Dizziness on standing Status: Acute Plan to address problem: Improved (3) Anemia in chronic renal disease Status: Chronic Qualifiers: Chronic kidney disease stage: on chronic dialysis Qualified Code(s): N18.6 - End stage renal disease; D63.1 - Anemia in chronic kidney disease; Z99.2 - Dependence on renal dialysis Plan to address problem: Will defer to nephrology regarding Epogen (4) ESRD needing dialysis Status: Acute (5) CHF (congestive heart failure) Status: Chronic Qualifiers: Heart failure type: combined systolic and diastolic Plan to address problem: Patient on Lasix 80 mg twice a day Add potassium to her Lasix regimen Echocardiogram for ejection fraction and valve function (6) Asthma Status: Ruled-out Qualifiers: Asthma persistence: unspecified Asthma complication type: unspecified Plan to address problem: Continue Singulair and Symbicort and nebulizer treatments as needed (7) IDDM (insulin dependent diabetes mellitus) Status: Acute Plan to address problem: Continue home insulin and coverage Check hemoglobin A1c (8) DVT prophylaxis Status: Acute Plan to address problem: On heparin and GI prophylaxis (9) Discharge planning issues Status: Acute Plan to address problem: Possible discharge in 48 to 72 hours Home health to be arranged Physical therapy to be arranged as outpatient Disposition: 01 HOME / SELF CARE / HOMELESS Final Discharge Diagnosis (Prints w/discharge instructions): Hypertensive emergency. Volume overload. End-stage renal disease on hemodialysis - Discharge Diagnoses (1) Hypertensive emergency Status: Acute (2) Dizziness on standing Status: Acute (3) Anemia in chronic renal disease Status: Chronic Qualifiers: Chronic kidney disease stage: on chronic dialysis Qualified Code(s): N18.6 - End stage renal disease; D63.1 - Anemia in chronic kidney disease; Z99.2 - Dependence on renal dialysis (4) ESRD needing dialysis Status: Acute (5) CHF (congestive heart failure) Status: Chronic Qualifiers: Heart failure type: combined systolic and diastolic (6) Asthma Status: Ruled-out Qualifiers: Asthma persistence: unspecified Asthma complication type: unspecified (7) IDDM (insulin dependent diabetes mellitus) Status: Acute (8) DVT prophylaxis Status: Acute (9) Discharge planning issues Status: Acute Core Measure Documentation - Palliative Care Palliative Care/ Comfort Measures: Not Applicable - Core Measures Any of the following diagnoses?: none Exam - Constitutional Vitals: Temp Pulse Resp BP Pulse Ox 97.8 F 74 18 150/63 97 06/20/21 18:30 06/20/21 18:30 06/20/21 18:30 06/20/21 18:30 06/20/21 18:30 General appearance: Present: no acute distress, well-nourished - EENT Eyes: Present: PERRL ENT: hearing intact, clear oral mucosa - Neck Neck: Present: supple, normal ROM - Respiratory Respiratory effort: normal Respiratory: bilateral: CTA - Cardiovascular Heart Sounds: Present: S1 & S2. Absent: rub, click - Extremities Extremities: pulses symmetrical, No edema Peripheral Pulses: within normal limits - Abdominal General gastrointestinal: Present: soft, non-tender, non-distended, normal bowel sounds Female genitourinary: Present: normal - Integumentary Integumentary: Present: clear, warm, dry - Musculoskeletal Musculoskeletal: gait normal, strength equal bilaterally - Psychiatric Psychiatric: appropriate mood/affect, intact judgment & insight - Neurologic Neurologic: CNII-XII intact, moves all extremities Plan Follow up with: PRIMARY CARE,MD [Primary Care Provider] - 3-5 Days Prescriptions: hydrALAZINE [Apresoline TAB] 50 mg PO TID #90 tablet AtorvaSTATin 10 mg PO QHS #30 tablet carvediloL [Coreg] 12.5 mg PO Q12HR #60 tablet carvediloL [Coreg] 12.5 mg PO BIDWM #60 Valsartan [Diovan] 160 mg PO Q12HR #60 tablet Gabapentin 100 mg PO TID #90 capsule Potassium Chloride [K-Dur] 20 meq PO Q12HR #60 tablet Insulin Glargine [Lantus VIAL] 15 units SUB-Q QHS #1 vial Furosemide [Lasix TAB] 80 mg PO BID #60 tablet Albuterol Mdi (or & Nicu Only) [ProAir HFA Inhaler] 2 puff IH QID PRN #1 PRN Reason: Shortness Of Breath ALBUTEROL NEB's [Proventil 0.083% NEBS] 2.5 mg IH Q4HRT PRN #50 nebu PRN Reason: Shortness Of Breath Cinacalcet [Sensipar] 30 mg PO QDAY #30 tablet Budesonide/Formoterol Fumarate [Symbicort 160-4.5 Mcg Inhaler] 2 puff PO BID #1 Trazodone HCl 100 mg PO QHS #30
== END 2021-06-20 21:45 | disposition home or self-care (01) | DRG 304 ==
LOC: ED 04:23 → CC1 12:39 → 4A 19:13
PROVIDERS: ADMIT Internal Medicine; ATTEND Internal Medicine
PROC: 5A1D70Z Performance of Urinary Filtration, Intermittent, Less than 6 Hours Per Day (ICD-10-PCS; principal; 2021-06-19)
PROC: 5A1D70Z Performance of Urinary Filtration, Intermittent, Less than 6 Hours Per Day (ICD-10-PCS; 2021-06-20)
DX: I16.1 Hypertensive emergency (principal); N18.6 End stage renal disease; I50.42 Chronic combined systolic (congestive) and diastolic (congestive) heart failure; D63.1 Anemia in chronic kidney disease; Z88.8 Allergy status to other drugs, medicaments and biological substances; J44.9 Chronic obstructive pulmonary disease, unspecified; I13.2 Hypertensive heart and chronic kidney disease with heart failure and with stage 5 chronic kidney disease, or end stage renal disease; E11.22 Type 2 diabetes mellitus with diabetic chronic kidney disease; Z99.2 Dependence on renal dialysis; G43.909 Migraine, unspecified, not intractable, without status migrainosus; Z86.718 Personal history of other venous thrombosis and embolism; Z79.4 Long term (current) use of insulin; R26.9 Unspecified abnormalities of gait and mobility; Z86.73 Personal history of transient ischemic attack (TIA), and cerebral infarction without residual deficits; Z82.49 Family history of ischemic heart disease and other diseases of the circulatory system
CPT/HCPCS: 36415; 70450; 71045; 80048; 80053; 80061; 80074; 80076; 80320; 82550; 82553; 82962; 83036; 83735; 83880; 84484; 85007; 85025; 85610; 85670; 85730; 93005; 94640; 94760; G0378; G0480; J1644; J1815; J2405